=== PATIENT | male | born 1950 | race Caucasian/White ===

== ENCOUNTER → 2021-01-15 09:21 | Outpatient (CLI) | payer MEDICARE, MEDICAID, SELFPAY | PROVIDERS: Visit Provider Surgery | DX: Z01.812 Encounter for preprocedural laboratory examination (principal); Z11.52 Encounter for screening for COVID-19; Z12.11 Encounter for screening for malignant neoplasm of colon | CPT/HCPCS: U0003 ==

== ENCOUNTER 2021-01-17 07:09 | Day surgery (SDC) | payer MEDICARE, MEDICAID, SELFPAY ==
[2021-01-17] VITALS (7 sets, daily range): BP systolic 106–166; BP diastolic 69–93; PULSE 69–96; RESP 16–18; TEMP 36.3–36.5; O2SAT 96–100
[2021-01-17 07:46] LABS: POC Glucose,Bedside 147 (70-110)
--- NOTE | 2021-01-17 08:00 | P.PN_ITS ---
[facility] Anesthesia Checklist - Patient Identification Patient Identification: Arm Band - Structural Data Admitted From: Home Planned Operative Procedure/s: colonoscopy Consent for Planned Operative Procedure(s) Verified: Yes Verified Documents: Surgical Consent, History and Physical - NPO Status Verified Time NPO: 00:00 - Additional verifications Anesthesia Reactions: No Hx Blood Transfusions: No Blood Transfusion Reaction: No - Airway Assessment C-Spine Mobility Assessed: Yes (mp2) TMJ Mobility Assessed: Yes Dentition: Good Dentition - Neurological Assessment Level of Consciousness: Awake, Alert - Anesthesia Plan Anesthesia Risk discussed: Yes Anesthesia Plan: Verified ASA Class: III Anesthesia Type: MAC [facility] History I have reviewed the patient's past medical history: Yes Medical History: Reports:: Diabetes Mellitus Type 2, Hyperlipidemia, Hypertension Denies:: Cancer, Diabetes Mellitus Type 1, Internal Pacemaker, Lung Disease, MRSA, Seizures *Have you ever received a pneumonia vaccine?: Yes *Have you received a flu vaccine this season?: Yes Other Medical History: Denies: Blood Transfusion Reaction Anesthesia experience/problems:: nac Laterality Cases: Bilateral: Cataract Other Surgeries: Yes: Colonoscopy, Other (cataract). No: Pacemaker Amputation: No Fractures: No - *Social History Last grade of school completed: High school graduate Smoking Status: Never smoker Alcohol Intake: never Substance Use Type: denies use *Occupational Status:: retired Housing: house Household Members: family *Travel in the last 8 weeks: None Family Hx:: Diabetes
--- NOTE | 2021-01-17 08:35 | HMH.SCOPE ---
- Procedure: Date: 01/17/21 Patient Date of :: 1950 Procedure Performed:: Total colonoscopy to terminal ileum with snare polypectomy Indications:: Patient is a 70-year-old male, patient of Dr. Bishop, who presents for follow-up colonoscopy. I had performed previous colonoscopy on him on 09/08/2018 as initial screening colonoscopy. In the ascending colon distal to the ileocecal valve he had a moderate, greater than 10 mm, polyp removed with hot snare which was sessile serrated adenoma; in the transverse colon he had an irregular sessile polyp removed in a piecemeal fashion using hot snare and this area was marked with Raegan ink; in the sigmoid colon there was a approximately 10 mm tubular adenoma. He had rare left-sided diverticuli. I recommended a 2-year follow-up colonoscopy based on the pathologic characteristics and size of the polyps. Performing Provider:: Christian Sanchez MD Referring Provider:: Isaac Bishop MD Sedation:: MAC sedation Procedure:: Patient was taken to endoscopy procedure room and positioned in a lateral decubitus position. Adequate intravenous sedation was achieved. Digital examination was performed which was unremarkable. Variable stiffness Olympus colonoscope was inserted via the anus. Was advanced at the cecum. Colonic preparation was fair particularly in the right colon with liquid stool coating the colonic burden. However adequate visualization was achieved with thorough irrigation and suctioning. Colonoscope was advanced a short distance into the terminal ileum which appeared grossly normal. Colonoscope was withdrawn through the colon with careful surveillance. In the transverse colon at the region where he had tattooing with Raegan ink there was evidence of a sessile polyp. This required injection of Eleview (methylene blue) submucosally. Polypectomy was performed with cold cutting snare. Colonoscope was withdrawn through the remainder of the colon with careful surveillance. He had a few diverticuli. Retroflexion within the rectum revealed no evidence of any pathologic internal hemorrhoids. Colonoscope was withdrawn. Findings:: Fair preparation, particularly right colon Transverse polyp Diverticuli Recommendations:: Pending pathology repeat colonoscopy 2 to 3 years given the prior history and suboptimal preparation Complications:: None immediately apparent Estimated blood obtained (mL): 1
== END 2021-01-17 09:12 | disposition home or self-care (01) ==
LOC: OUTP 07:11
PROVIDERS: PCP Internal Medicine; Visit Provider Surgery
PROC: 0DJD8ZZ Inspection of Lower Intestinal Tract, Via Natural or Artificial Opening Endoscopic (ICD-10-PCS; principal; 2021-01-17 08:30)
DX: Z12.11 Encounter for screening for malignant neoplasm of colon (principal); Z86.010 Personal history of colon polyps; K63.5 Polyp of colon; K57.30 Diverticulosis of large intestine without perforation or abscess without bleeding; E11.9 Type 2 diabetes mellitus without complications; E78.5 Hyperlipidemia, unspecified; I10 Essential (primary) hypertension; Z83.3 Family history of diabetes mellitus; Z79.82 Long term (current) use of aspirin; Z79.899 Other long term (current) drug therapy; Z79.84 Long term (current) use of oral hypoglycemic drugs
CPT/HCPCS: 45385; 82962; 88305

== ENCOUNTER → 2021-08-03 12:37 | Outpatient (CLI) | payer MEDICARE, MEDICAID, SELFPAY ==
[2021-08-03 16:51] LABS: Chloride 104 mmol/L (98-107); Potassium 5.8 mmoL/L (3.5-5.1); Sodium 137 mmol/L (136-145)
[2021-08-03 16:53] LABS: Alanine Aminotransferase 24 U/L (12-78); Aspartate Amino Transferase 30 U/L (17-59); Blood Urea Nitrogen 17 mg/dl (9-20); Estimated Glomerular Filt Rate 83 ml/min (>60); GFR (African American) 101 ML/MIN (>60)
[2021-08-03 16:54] LABS: Albumin Level 4.6 g/dl (3.5-5.0); Albumin/Globulin Ratio 1.5 (1.1-1.8); Alkaline Phosphatase 112 U/L (38-126); Anion Gap 14.8 mEq/L (5-15); Calcium 8.9 mg/dl (8.4-10.2); Carbon Dioxide 24 mmol/L (22.0-30.0); Chol/HDL Ratio 3.7 (1-3.5); Cholesterol 112 mg/dl (140-200); Glucose 111 mg/dl (74-100); HDL Cholesterol 30 mg/dl (40-60); Total Protein,Serum 7.6 g/dl (6.3-8.2); Triglycerides 94 mg/dl (30-150); VLDL Cholesterol 19 mg/dL (0-40)
[2021-08-03 17:05] LABS: Direct LDL Cholesterol 78.73 mg/dL (100-129)
[2021-08-03 17:25] LABS: Hemoglobin A1C 7.2 % (4.0-6.0)
== END ==
PROVIDERS: Visit Provider Internal Medicine
DX: E11.9 Type 2 diabetes mellitus without complications (principal); Z79.84 Long term (current) use of oral hypoglycemic drugs
CPT/HCPCS: 80053; 80061; 83036

== ENCOUNTER → 2021-08-10 14:19 | Outpatient (CLI) | payer MEDICARE, MEDICAID, SELFPAY ==
[2021-08-10 16:26] LABS: Potassium 4.5 mmoL/L (3.5-5.1)
== END ==
PROVIDERS: Visit Provider Internal Medicine
DX: E87.5 Hyperkalemia (principal)
CPT/HCPCS: 84132

== ENCOUNTER → 2022-02-05 12:14 | Outpatient (CLI) | payer MEDICARE, MEDICAID, SELFPAY ==
[2022-02-05 14:12] LABS: Basophils # 0.1 K/mm3 (0-0.2); Basophils % 0.8 % (0.1-2.0); Eosinophils # 0.1 K/mm3 (0.0-0.4); Eosinophils % 1.9 % (0.1-12.0); Hematocrit 47.5 % (42.0-52.0); Hemoglobin 15.2 g/dL (14.1-18.0); Lymphocytes # 1.3 K/mm3 (0.7-4.5); Lymphocytes % 22.1 % (10-50); Mean Corpuscular HGB Conc 31.9 g/dL (31.8-35.4); Mean Corpuscular Hemoglobin 28.7 pg (27.0-31.2); Mean Corpuscular Volume 89.9 fl (80-94); Mean Platelet Volume 8.5 fl (7.4-10.4); Monocytes # 0.4 K/mm3 (0.1-1.0); Monocytes % 6.7 % (1.7-9.3); Neutrophils % 68.5 % (37.0-80.0); Platelet Count 295 K/mm3 (142-424); Red Blood Count 5.28 M/mm3 (4.60-6.20); Red Cell Distribution Width 13.6 % (11.5-17.5); White Blood Count 5.9 K/mm3 (4.8-10.8)
[2022-02-05 14:28] LABS: Chol/HDL Ratio 3.7 (1-3.5); Cholesterol 123 mg/dl (140-200); HDL Cholesterol 33 mg/dl (40-60); Triglycerides 69 mg/dl (30-150); VLDL Cholesterol 14 mg/dL (0-40)
[2022-02-05 14:31] LABS: Creatinine,Urine Random 109 mg/dL (Not Estab.)
[2022-02-05 14:32] LABS: Microalbumin/Creatinine Ratio 67.4
[2022-02-05 15:05] LABS: Hemoglobin A1C 7.9 % (4.0-6.0)
[2022-02-07 08:48] LABS: Direct LDL Cholesterol 70 mg/dL (100-129)
== END ==
PROVIDERS: PCP Internal Medicine; Visit Provider Internal Medicine
DX: E11.22 Type 2 diabetes mellitus with diabetic chronic kidney disease (principal); E78.5 Hyperlipidemia, unspecified; E55.9 Vitamin D deficiency, unspecified; R80.9 Proteinuria, unspecified; M17.0 Bilateral primary osteoarthritis of knee; Z79.84 Long term (current) use of oral hypoglycemic drugs
CPT/HCPCS: 80061; 82043; 82570; 83036; 85025

== ENCOUNTER → 2022-08-13 11:25 | Outpatient (CLI) | payer MEDICARE, MEDICAID, SELFPAY ==
[2022-08-13 12:50] LABS: Basophils % 0.6 % (0.1-2.0); Eosinophils # 0.2 K/mm3 (0.0-0.4); Hematocrit 48.9 % (42.0-52.0); Hemoglobin 15.9 g/dL (14.1-18.0); Lymphocytes # 1.4 K/mm3 (0.7-4.5); Lymphocytes % 23.3 % (10-50); Mean Corpuscular HGB Conc 32.4 g/dL (31.8-35.4); Mean Corpuscular Hemoglobin 28.3 pg (27.0-31.2); Mean Corpuscular Volume 87.4 fl (80-94); Mean Platelet Volume 8.4 fl (7.4-10.4); Monocytes # 0.5 K/mm3 (0.1-1.0); Monocytes % 8.6 % (1.7-9.3); Neutrophils # 3.8 K/mm3 (1.8-7.8); Neutrophils % 64.5 % (37.0-80.0); Platelet Count 299 K/mm3 (142-424); Red Blood Count 5.59 M/mm3 (4.60-6.20); Red Cell Distribution Width 13.5 % (11.5-17.5); White Blood Count 5.9 K/mm3 (4.8-10.8)
[2022-08-13 13:42] LABS: Alanine Aminotransferase 19 U/L (12-78); Albumin Level 4.4 g/dl (3.5-5.0); Albumin/Globulin Ratio 1.5 (1.1-1.8); Alkaline Phosphatase 105 U/L (38-126); Anion Gap 8.5 mEq/L (5-15); Aspartate Amino Transferase 20 U/L (17-59); Bilirubin,Total 1.1 mg/dl (0.2-1.3); Blood Urea Nitrogen 16 mg/dl (9-20); Carbon Dioxide 26 mmol/L (22.0-30.0); Chloride 107 mmol/L (98-107); Chol/HDL Ratio 3.3 (1-3.5); Cholesterol 106 mg/dl (140-200); Estimated Glomerular Filt Rate 83 ml/min (>60); GFR (African American) 101 ML/MIN (>60); Globulin 2.9 g/dL (1.3-3.2); Glucose 121 mg/dl (74-100); HDL Cholesterol 32 mg/dl (40-60); Potassium 4.5 mmoL/L (3.5-5.1); Sodium 137 mmol/L (136-145); Total Protein,Serum 7.3 g/dl (6.3-8.2); Triglycerides 71 mg/dl (30-150); VLDL Cholesterol 14 mg/dL (0-40)
[2022-08-13 13:53] LABS: Direct LDL Cholesterol 60.59 mg/dL (100-129)
[2022-08-13 14:12] LABS: Prostate Specific Ag Screen 1.6 ng/ml (0.0-4.0)
== END ==
PROVIDERS: PCP Internal Medicine; Visit Provider Internal Medicine
DX: E11.52 Type 2 diabetes mellitus with diabetic peripheral angiopathy with gangrene (principal); E78.5 Hyperlipidemia, unspecified; E55.9 Vitamin D deficiency, unspecified; R80.9 Proteinuria, unspecified; N40.1 Benign prostatic hyperplasia with lower urinary tract symptoms; Z12.5 Encounter for screening for malignant neoplasm of prostate; Z79.84 Long term (current) use of oral hypoglycemic drugs
CPT/HCPCS: 80053; 80061; 83036; 85025; G0103

== ENCOUNTER → 2023-02-12 12:11 | Outpatient (CLI) | payer MEDICARE, MEDICAID, SELFPAY ==
[2023-02-12 13:49] LABS: Alanine Aminotransferase 22 U/L (12-78); Albumin Level 4.4 g/dl (3.5-5.0); Albumin/Globulin Ratio 1.6 (1.1-1.8); Alkaline Phosphatase 109 U/L (38-126); Anion Gap 18.8 mEq/L (5-15); Aspartate Amino Transferase 22 U/L (17-59); Bilirubin,Total 0.9 mg/dl (0.2-1.3); Blood Urea Nitrogen 16 mg/dl (9-20); Carbon Dioxide 23 mmol/L (22.0-30.0); Chloride 105 mmol/L (98-107); Cholesterol 109 mg/dl (140-200); Estimated Glomerular Filt Rate 95 ml/min (>60); GFR (African American) 115 ML/MIN (>60); Globulin 2.8 g/dL (1.3-3.2); Glucose 123 mg/dl (74-100); HDL Cholesterol 36 mg/dl (40-60); Potassium 4.8 mmoL/L (3.5-5.1); Sodium 142 mmol/L (136-145); Total Protein,Serum 7.2 g/dl (6.3-8.2); Triglycerides 69 mg/dl (30-150); VLDL Cholesterol 14 mg/dL (0-40)
[2023-02-12 13:59] LABS: Direct LDL Cholesterol 54.28 mg/dL (100-129)
[2023-02-12 17:36] LABS: Hemoglobin A1C 7.3 % (4.0-6.0)
[2023-02-12 18:06] LABS: Creatinine,Urine Random 92 mg/dL (Not Estab.)
[2023-02-12 18:22] LABS: Microalbumin/Creatinine Ratio 84.7
== END ==
PROVIDERS: PCP Internal Medicine; Visit Provider Internal Medicine
DX: E11.22 Type 2 diabetes mellitus with diabetic chronic kidney disease (principal); E78.5 Hyperlipidemia, unspecified; E55.9 Vitamin D deficiency, unspecified; R80.9 Proteinuria, unspecified; M17.0 Bilateral primary osteoarthritis of knee; N40.1 Benign prostatic hyperplasia with lower urinary tract symptoms; Z79.84 Long term (current) use of oral hypoglycemic drugs
CPT/HCPCS: 80053; 80061; 82043; 82570; 83036

== ENCOUNTER 2023-06-14 12:13 | Inpatient (IN) | payer MEDICARE, MEDICAID, SELFPAY ==
[2023-06-14] VITALS (23 sets, daily range): BP systolic 116–171; BP diastolic 71–109; PULSE 70–126; RESP 15–20; TEMP 36.4–36.8; O2SAT 94–100; BMI 28.0; BMI 29.0
--- NOTE | 2023-06-14 | IR_ITS ---
APPROVED REPORT Patient Location: Emergent Chief Engineer: JASMEET Hines RT (R) PROCEDURES Left heart catheterization Left ventriculogram Selective coronary angiogram Drug-eluting stent deployment to the mid and distal dominant right coronary artery Drug-eluting stent deployment to the proximal and mid LAD in a contiguous manner INDICATION Acute inferior ST elevation myocardial infarction, Coronary artery disease Informed consent was obtained prior to the procedure. COMPLICATIONS None Estimated Blood Loss: Less than 10 mls TECHNIQUE One percent lidocaine used to anesthetize the right anterior aspect of the wrist. The right radial artery was accessed via the Seldinger technique. A 6 Tamazight sheath was placed in the right radial artery. 2.5 mg of Verapamil, 800 mcg of nitroglycerin, 1mg Lidocaine and 5000 U Heparin were given through the arterial sheath. The papa catheter was also used to perform left heart catheterization, left ventriculogram and selective coronary angiogram. At the end the diagnostic angiogram therapeutic heparin was administered giving a therapeutic ACT and the guide catheter was placed in the right coronary artery followed by Choice PT extra-support wire down the right coronary artery. A 3 mm x 38 mm Basilio frontier stent was delivered at 20 shirley reducing the critical stenosis to 0%. SCOTT-3 flow was present before and after the procedure. Following this the catheter was placed in the LAD and a choice floppy was placed down distally. A 2.5 x 38 mm Basilio frontier stent was deployed at 16 shirley in the mid LAD. Following this a 3 mm x 38 mm [place] frontier stent was placed proximal to this extending back into the proximal segment and deployed at 20 shirley. The balloon was then advanced into 70% of the 2.5 mm stent and then deployed at 20 shirley. SCOTT-3 flow was present before and after the procedure. After the procedure and achieving excellent angiograph results the apparatus was removed the sheath was removed and hemostasis was achieved using TR banding patient was transferred to the postop holding in stable condition ANGIOGRAPHIC RESULTS The left main artery Normal The left anterior descending artery Has a proximal eccentric 60% stenosis with diffuse mid vessel 7080 and 90% stenoses. Distally there is a concentric 50% stenosis The circumflex artery Is nondominant yet still a large-caliber vessel and has mild proximal 10% luminal irregularities The right coronary artery Is a dominant vessel has proximal 40% stenosis within the mid vessel 40% stenosis along a tortuous bend followed by a focal 90% stenosis followed by additional 40% stenoses. Distally there are 40% stenoses along tortuous bends. A large RV marginal branch has a proximal 90% stenosis however the vessel is less than 2 mm in diameter and SCOTT-3 flow was present The GRAVES ventriculogram reveals Dilated ventricle with inferior wall hypokinesis and mild anterior wall hypokinesis. Estimated ejection fraction is 30 to 35% The left ventricular end-diastolic pressure 20 mmHg IMPRESSION Severe to critical two-vessel coronary disease as described above Successful stenting of the mid to distal dominant right coronary critical disease reduced to 0% with 1 drug-eluting stent Successful stenting the proximal to mid LAD severe disease reduced to 0% with 2 contiguous drug-eluting stents Severely reduced ejection fraction with regional wall motion abnormalities Elevated LVEDP PLAN 1. Effient 10 mg daily plus aspirin 81 mg daily 2. LDL less than 55 to be achieved with high intensity statin 3. Start Entresto and uptitrate as tolerated. Also start carvedilol 3.125 p.o. twice daily and uptitrate as tolerated 4. Patient will need to be monitored for at least the next 48 hours. Recommend echocardiogram Friday and possibly fit for LifeVest if ejection fraction remains less than 35% 5. Cardiac rehabilitation 6. Continuous telemetry Electronically signed by : Brandon Bernardo MD 06/14/2023 17:11:20
--- NOTE | 2023-06-14 13:28 | PC.NURSE ---
checked on pt no needs at this time relaxing in bed at bs
--- NOTE | 2023-06-14 13:36 | CT_ITS ---
PROCEDURE INFORMATION: Exam: CTA Chest With Contrast Exam date and time: 06/14/2023 3:19 PM Age: 72 years old Clinical indication: Pain; Chest pressure; Additional info: Chest pain, tachy TECHNIQUE: Imaging protocol: Computed tomographic angiography of the chest with contrast. Exam focused on the arteries. 3D rendering (Not supervised by radiologist): MIP and/or 3D reconstructed images were created by the technologist. Radiation optimization: All CT scans at this facility use at least one of these dose optimization techniques: automated exposure control; mA and/or kV adjustment per patient size (includes targeted exams where dose is matched to clinical indication); or iterative reconstruction. Contrast material: ISO 370; Contrast volume: 75 ml; Contrast route: INTRAVENOUS (IV); REPORTING DATA: Count of CT and Cardiac NM exams in prior 12 months: This patient has received 0 known CTs and 0 known cardiac nuclear medicine studies in the 12 months prior to the current study. COMPARISON: CR XR CHEST 2V 09/06/2019 4:50 AM FINDINGS: Pulmonary arteries: Normal. No pulmonary emboli. Aorta: Unremarkable. No aortic aneurysm. No aortic dissection. Lungs: Unremarkable. No consolidation. No masses. Pleural spaces: Unremarkable. No pneumothorax. No pleural effusion. Heart: Unremarkable. No cardiomegaly. No pericardial effusion. Lymph nodes: Unremarkable. No enlarged lymph nodes. Bones/joints: Unremarkable. No acute fracture. Soft tissues: Unremarkable. IMPRESSION: No acute findings.
--- NOTE | 2023-06-14 13:37 | ED_ITS ---
Discharge Plan Disposition Patient Disposition: Admitted Prescriptions Prescriptions: No Action aspirin [Aspir-Anuja] 325 mg tablet,delayed release (DR/EC) 325 mg PO DAILY losartan 25 mg tablet 25 mg PO DAILY glipizide 5 MG tablet extended release 24hr 5 mg PO BID metformin 1,000 MG tablet 1,000 mg PO BID atorvastatin 10 MG tablet 10 mg PO HS Referrals Follow up/Referrals: Isaac Bishop MD [Primary Care Provider] - See instructions Clinical Impressions Clinical Impression: Chest pain, Tachycardia, Non-ST elevation TX (NSTEMI) Discharge ED Provider: Jitendra Pérez HPI General Chief Complaint: Chest Pain Stated Complaint: Chest Pain Time Seen by Provider: 06/14/23 13:25 Mode of Arrival: Ambulatory Source of Information: Patient Limitations: No Limitations Description of Symptoms (Recalled from ER Triage Doc. by RN): Patient complaint of chest pain that started yesterday and has just not gotten any better. States he thought it may be heart burn but states he has never had heart burn before. History of Present Illness HPI narrative: Patient is a 72-year-old male presenting today with chest pain. States that other than diabetes he has no significant medical problems does not regularly go to the doctor or the emergency department has had 2 days of constant chest discomfort in the substernal region nonradiating nonexertional not associated with diaphoresis or dyspnea. Denies any pleuritic or positional aspect of this. No fevers chills cough or any other symptoms. No lower extremity swelling no history of TX heart failure etc. Related Data Home Medications Medication Instructions Recorded Confirmed glipizide 5 mg tablet, extended 5 mg PO BID Diabetes 04/29/18 06/14/23 release 24 hr metformin 1,000 mg tablet 1,000 mg PO BID Diabetes 04/29/18 06/14/23 aspirin 325 mg tablet,delayed 325 mg PO DAILY heart. 08/21/18 06/14/23 release (Aspir-Anuja) losartan 25 mg tablet 25 mg PO DAILY bp 12/29/20 06/14/23 atorvastatin 10 mg tablet 10 mg PO HS Cholesterol 01/09/21 06/14/23 Allergies Allergy/AdvReac Type Severity Reaction Status Date / Time No Known Allergies Allergy Verified 02/05/21 09:31 [facility] Disclaimer: The information contained in this section may have been updated after the patient was seen, as this information can be updated by other users. Social History Smoking Status: Unknown if ever smoked second hand exposure: No alcohol intake: never substance use type: denies use current occupational status: retired Travel in the last 8 weeks: None household members: family housing: house caffeine: Yes ROS Obtained: Yes All systems reviewed & no additional complaints except as documented Physical Exam General General appearance: alert Respiratory Respiratory exam: Present normal lung sounds bilaterally; Absent respiratory distress Cardiovascular Cardiovascular exam: Present tachycardia Abdominal Exam Abdominal exam: Present soft and distention; Absent tenderness Neurological Exam Neurological exam: Present alert and oriented X3 HEART Score HEART Score HEART Score assessment performed?: Yes History (anamnesis): Moderately suspicious ECG: Non-specific disturbance Age: >65 years Risk factors: 1-2 risk factors Troponin: > 3x normal limit HEART Score: 7 Procedures Miscellaneous Procedure Procedure Performed: Limited cardiac ultrasound Indication: Chest pain Identified structures: The heart was visualized in the parasternal long axis, parastenal short axis, apical four chamber and subxyphiod views. The IVC was visualized in the short axis and long axis at its entry into the right atrium. Findings: Hyperdynamic LV normal LVEF no obvious significant regional wall motion abnormality or obvious right heart strain including Hayward sign septal deviation or RV LV ratio elevation. No pericardial effusion noted. Impression: Hyperdynamic LV but otherwise unremarkable emergency bedside cardiac ultrasound. Images were saved to permanent archive The study was technically adequate CPT: 52037-89 This study was performed by me, and I personally interpreted all images/videos. Based on my clinical judgement, these images were adequate and did not necessitate further imaging. Critical Care Critical Care Time Critical Care Time: Yes Attestation: On 06/14/23, the high probability of a clinically significant, sudden or life threatening deterioration of the following system(s) required my full and direct attention, intervention and personal management. The time I documented below is in addition to time spent performing reported procedures but includes the following listed in this critical care notation. Total Time Total Critical Care Time: 35 Medical Decision Making Declan Inquiry Pt receiving controlled substance: No Vital Signs Vital Signs: 06/14/23 12:13 06/14/23 12:30 06/14/23 13:00 Temperature 98.0 F Temperature Source Oral Pulse Rate 115 H 116 H Pulse Rate [Radial] 126 H Respiratory Rate 20 15 19 Blood Pressure 147/94 H 139/92 H Blood Pressure [Right Arm] 158/109 H Blood Pressure Mean [Right Arm] 125 Blood Pressure Source [Right Arm] Automatic Cuff Blood Pressure Position [Right Arm] Sitting 02 Sat by Pulse Oximetry 98 97 97 Oxygen Delivery Method Room Air 06/14/23 13:30 06/14/23 14:00 Temperature Temperature Source Pulse Rate 112 H 113 H Pulse Rate [Radial] Respiratory Rate Blood Pressure 158/95 H 151/94 H Blood Pressure [Right Arm] Blood Pressure Mean [Right Arm] Blood Pressure Source [Right Arm] Blood Pressure Position [Right Arm] 02 Sat by Pulse Oximetry 97 97 Oxygen Delivery Method Lab Data Lab results reviewed: Yes I reviewed the patient's lab results. Labs: Lab Results 06/14/23 12:14: WBC 7.3, RBC 6.09, Hgb 17.3, Hct 52.5 H, MCV 86.3, MCH 28.4, MCHC 32.9, RDW 13.6, Plt Count 265, MPV 8.1, Neut % (Auto) 64.2, Lymph % (Auto) 26.0, [place] % (Auto) 7.0, Eos % (Auto) 2.1, Baso % (Auto) 0.8, Neut # (Auto) 4.7, Lymph # (Auto) 1.9, [place] # (Auto) 0.5, Eos # (Auto) 0.2, Baso # (Auto) 0.1, Sodium 141, Potassium 3.8, Chloride 104, Carbon Dioxide 24, Anion Gap 16.8 H, BUN 18, Creatinine 0.90, Estimated Creat Clear 95, Estimated GFR 83, Est GFR ( Amer) 101, Glucose 274 H, Calcium 8.7, Magnesium 1.8, Total Bilirubin 1.1, AST 53, ALT 43, Alkaline Phosphatase 131 H, Troponin I 0.61 H, Total Protein 8.0, Albumin 4.6, Globulin 3.4 H, Albumin/Globulin Ratio 1.4, TSH 1.66 06/14/23 14:25: Troponin I 0.56 H 06/14/23 12:14 06/14/23 12:14 Response Orders (Tests/Meds): ED MEDICATIONS Discontinued Medications Generic Name Dose Route Start Last Admin Trade Name Freq PRN Reason Stop Dose Admin Aspirin 324 mg 06/14/23 13:35 06/14/23 13:51 Aspirin 81mg Chewable Tablet PO 06/14/23 13:36 Not Given ONCE ONE Lactated Ringer's 1,000 mls @ 999 mls/hr 06/14/23 13:45 06/14/23 13:47 Lactated Ringer's 1000 Ml Bag IV 06/14/23 14:45 999 mls/hr .Q1H1M JR Administration Iopamidol 75 ml 06/14/23 15:23 06/14/23 15:26 Iopamidol-370 (76%);100ml Bottle IV 06/14/23 15:24 75 ml ONCE ONE Administration Sodium Chloride 50 ml 06/14/23 15:23 06/14/23 15:26 0.9 % Sodium Chloride 50 Ml Vial IV 06/14/23 15:24 50 ml ONCE ONE Administration Sodium Chloride 10 ml 06/14/23 15:23 06/14/23 15:26 Sodium Chloride 0.9% 10ml Syr (Rad Only) IV 06/14/23 15:24 10 ml ONCE ONE Administration ORDERS Category Date Time Status CT angio chest PE protocol Stat Cat Scan 06/14/23 13:36 Taken CBC w/Auto Diff [Complete Blood Count Auto Diff] Stat Lab 06/14/23 12:14 Completed CMP [Comprehensive Metabolic Panel] Stat Lab 06/14/23 12:14 Completed Magnesium Stat Lab 06/14/23 12:14 Completed TSH [Thyroid Stimulating Hormone] Stat Lab 06/14/23 12:14 Completed Trop I [Troponin I] Stat Lab 06/14/23 12:14 Completed Troponin I Q3H Lab 06/14/23 14:25 Completed Troponin I Q3H Lab 06/14/23 19:45 Ordered MDM Narrative Medical Decision Narrative: Patient is a 72-year-old male presenting today with chest pain for the last several days that has been constant no other high risk factors associated with that however he is significantly tachycardic at 120 on my evaluation. EKG performed which I first interpreted which shows a ventricular rate of 127 sinus tachycardia did have low voltage in the precordial leads but this reason was con cerned about a possible pericardial effusion or heart failure and an ultrasound was done as below, remainder of the EKG interpretation showed a positive deflection in leads I and aVF normal axis there is some Q waves in the inferior leads which may be from an old [place] but no acute ST elevations or depressions or other significant conduction abnormalities noted. Ultrasound was done which did not show any acute pericardial effusion or any obvious regional wall motion abnormalities. I am highly concerned about a possible pulmonary embolism in this patient we will get a CT PE get troponins BNP etc. IV fluids will be administered as well. Reassessment 3:46 PM patient still stating he is having very mild amount of chest discomfort. Has not worsened states the majority of his pain was yesterda y. The initial troponin was actually initially lost by the lab and resulted at this exact same time as a second troponin both of which are elevated but trending down first troponin was 0.61-second troponin was 0.56. I reviewed the case with Dr. Bernardo. Given the fact he has a low bit of ongoing discomfort has an Q waves and some less than 1 mm elevations inferiorly but not technically STEMI criteria he will take him to the Sales Development Executive right now. He has been given aspirin additional antiplatelet agents anticoagulation per the wrapper caser. I discussed the case with the patient he is agreeable to this plan.
[2023-06-14 13:47] LABS: Basophils # 0.1 K/mm3 (0-0.2); Basophils % 0.8 % (0.1-2.0); Eosinophils # 0.2 K/mm3 (0.0-0.4); Eosinophils % 2.1 % (0.1-12.0); Hematocrit 52.5 % (42.0-52.0); Hemoglobin 17.3 g/dL (14.1-18.0); Lymphocytes # 1.9 K/mm3 (0.7-4.5); Mean Corpuscular HGB Conc 32.9 g/dL (31.8-35.4); Mean Corpuscular Hemoglobin 28.4 pg (27.0-31.2); Mean Corpuscular Volume 86.3 fl (80-94); Mean Platelet Volume 8.1 fl (7.4-10.4); Monocytes # 0.5 K/mm3 (0.1-1.0); Neutrophils # 4.7 K/mm3 (1.8-7.8); Neutrophils % 64.2 % (37.0-80.0); Platelet Count 265 K/mm3 (142-424); Red Blood Count 6.09 M/mm3 (4.60-6.20); Red Cell Distribution Width 13.6 % (11.5-17.5); White Blood Count 7.3 K/mm3 (4.8-10.8)
[2023-06-14] MEDS: LACTATED RINGERS 1000ML 1,000 ML 999 ML IV (13:47)
--- NOTE | 2023-06-14 14:20 | HMH.ITSTN ---
ct pending, waiting on lab results
[2023-06-14 14:53] LABS: Chloride 104 mmol/L (98-107); Potassium 3.8 mmoL/L (3.5-5.1); Sodium 141 mmol/L (136-145)
[2023-06-14 14:55] LABS: Alanine Aminotransferase 43 U/L (12-78); Alkaline Phosphatase 131 U/L (38-126); Aspartate Amino Transferase 53 U/L (17-59); Bilirubin,Total 1.1 mg/dl (0.2-1.3); Blood Urea Nitrogen 18 mg/dl (9-20); Creatinine Clearance Estimated 95 mL/min (50-200); Estimated Glomerular Filt Rate 83 ml/min (>60); GFR (African American) 101 ML/MIN (>60)
[2023-06-14 14:56] LABS: Albumin Level 4.6 g/dl (3.5-5.0); Albumin/Globulin Ratio 1.4 (1.1-1.8); Anion Gap 16.8 mEq/L (5-15); Calcium 8.7 mg/dl (8.4-10.2); Carbon Dioxide 24 mmol/L (22.0-30.0); Globulin 3.4 g/dL (1.3-3.2); Glucose 274 mg/dl (74-100)
[2023-06-14 15:08] LABS: Magnesium 1.8 mg/dl (1.6-2.3)
[2023-06-14 15:10] LABS: Troponin I 0.56 ng/ml (0.00-0.034)
[2023-06-14 15:10] LABS: Troponin I 0.61 ng/ml (0.00-0.034)
--- NOTE | 2023-06-14 15:11 | PC.NURSE ---
critical trop 1st one is .61, second one is .56, aware, delay per lab on first trop
[2023-06-14] MEDS: 0.9 % SODIUM CHLORIDE 50 ML VIAL IV (15:26)
[2023-06-14] MEDS: IOPAMIDOL-370 (76%);100ML BOTTLE 75 ML IV (15:26)
[2023-06-14] MEDS: SODIUM CHLORIDE 0.9% 10ML SYR (RAD ONLY) 10 ML IV (15:26)
[2023-06-14 15:27] LABS: Thyroid Stimulating Hormone 1.66 uIU/mL (0.465-4.68)
--- NOTE | 2023-06-14 15:42 | PC.NURSE ---
mechanical laboratory technician team paged at [facility] request. Received call back from Diandra at [phone], Gianna and Dontae at [phone]
--- NOTE | 2023-06-14 15:45 | PC.NURSE ---
Patient changing into a gown.
--- NOTE | 2023-06-14 15:53 | PC.NURSE ---
pt in gown , shaved groin and re cycled Bp
--- NOTE | 2023-06-14 16:23 | PC.NURSE ---
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
[2023-06-14] MEDS: 0.9 % SODIUM CHLORIDE 500 ML 25 ML IV (16:37)
[2023-06-14] MEDS: NITROGLYCERIN 800MCG/8ML SYR (CATH LAB) 800 MCG IA (16:37)
[2023-06-14] MEDS: VERAPAMIL 2.5MG/ML 2ML VIAL 2.5 MG IV (16:37)
[2023-06-14] MEDS: HEPARIN 1,000 UNITS/500ML NS (CATH LAB) 3000 UNIT IV (16:37)
[2023-06-14] MEDS: HEPARIN 1,000 UNITS/ML 10ML VIAL (CATH LAB) 10000 UNIT IV ×3 (16:37→17:13)
[2023-06-14] MEDS: LIDOCAINE 1% 10ML MDV 20 ML IJ (16:37)
[2023-06-14] MEDS: diphenhydrAMINE 50MG/ML VIAL 50 MG IV (16:38)
[2023-06-14] MEDS: METOPROLOL TARTRATE 5MG/5ML VIAL 5 MG IV (16:52)
[2023-06-14] MEDS: FENTANYL 100MCG/2ML VIAL 50 MCG IV (17:04)
[2023-06-14] MEDS: MIDAZOLAM HCL 1MG/1ML 5ML VIAL 1 MG IV (17:04)
[2023-06-14] MEDS: PRASUGREL 10MG TAB 60 MG PO (17:13)
[2023-06-14] MEDS: IOPAMIDOL-370 (76%);100ML BOTTLE 180 ML IV (17:23)
[2023-06-14 17:24] LABS: CATHL Activated Clotting Time 289 SEC (74-125)
--- NOTE | 2023-06-14 17:45 | PC.NURSE ---
Pt arrived to the floor post cath. Pt alert and oriented x4. Radialband to right extremity, no drainage noted, 12 ML of air intact. Pt lung sounds clear. Abdomen soft and nontender, bowel sounds active. Pt has no complaints at this time. Continuous vital sign monitoring. Call light in reach and working. Family at the bedside.
[2023-06-14] MEDS: HEPARIN SODIUM 5,000 UNIT/ML VIAL 5000 UNIT SQ (18:26)
--- NOTE | 2023-06-14 20:01 | EXP.HP ---
History of Present Illness *Admission Date: 06/14/23 *Reason for visit:: CP *History of present illness: This is a 72-year-old male PMHx of diabetes, HLD, presenting today with chest pain. Stated has had 2 days of constant chest discomfort in the substernal region nonradiating nonexertional not associated with diaphoresis or dyspnea. Denies any pleuritic or positional aspect of this. No fevers chills cough or any other symptoms. No lower extremity swelling no history of PA heart failure etc. Patient admitted for cath labs. patient seen after procedure. [facility] Disclaimer: The information contained in this section may have been updated after the patient was seen, as this information can be updated by other users. Medical History (Updated 06/14/23 @ 20:27 by Humphrey Whiteside APRN) Cataract Diabetes mellitus, type 2 Hyperlipidemia Hypertension Family History (Updated 06/14/23 @ 17:48 by Elizabeth Mireles, RN) Other No significant family history Social History (Updated 06/14/23 @ 17:49 by Elizabeth Mireles, RN) Smoking Status: Unknown if ever smoked second hand exposure: No alcohol intake: never substance use type: denies use current occupational status: retired Travel in the last 8 weeks: None household members: family housing: house caffeine: Yes Review of Systems Review of Systems Review of systems:: pertinent systems reviewed and negative unless documented below Meds Home Medications and Allergies Home Medications Medication Instructions Recorded Confirmed Type glipizide 5 mg tablet, extended 5 mg PO BID Diabetes 04/29/18 06/14/23 History release 24 hr metformin 1,000 mg tablet 1,000 mg PO BID Diabetes 04/29/18 06/15/23 History aspirin 325 mg tablet,delayed 325 mg PO DAILY Circulation 08/21/18 06/15/23 History release (Aspir-Anuja) atorvastatin 10 mg tablet 10 mg PO HS Cholesterol 01/09/21 06/15/23 History dapagliflozin propanediol 10 mg 10 mg PO DAILY Diabetes 06/14/23 06/14/23 History tablet (Farxiga) losartan 50 mg tablet 50 mg PO DAILY Hypertension 06/15/23 06/15/23 History New Prescriptions to Start Prescriptions: Allergies Allergy/AdvReac Type Severity Reaction Status Date / Time No Known Allergies Allergy Verified 02/05/21 09:31 Exam Data for Last 24 hours Vital signs and Labs for Last 24 Hours: Temp Pulse Resp BP Pulse Ox O2 Del Method 97.7 F 79 18 126/75 98 Room Air 06/14/23 18:45 06/14/23 18:45 06/14/23 18:45 06/14/23 18:45 06/14/23 18:45 06/14/23 18:45 Laboratory Results - last 24 hr 06/14/23 12:14: WBC 7.3, RBC 6.09, Hgb 17.3, Hct 52.5 H, MCV 86.3, MCH 28.4, MCHC 32.9, RDW 13.6, Plt Count 265, MPV 8.1, Neut % (Auto) 64.2, Lymph % (Auto) 26.0, Taliaferro % (Auto) 7.0, Eos % (Auto) 2.1, Baso % (Auto) 0.8, Neut # (Auto) 4.7, Lymph # (Auto) 1.9, [place]ferro # (Auto) 0.5, Eos # (Auto) 0.2, Baso # (Auto) 0.1, Sodium 141, Potassium 3.8, Chloride 104, Carbon Dioxide 24, Anion Gap 16.8 H, BUN 18, Creatinine 0.90, Estimated Creat Clear 95, Estimated GFR 83, Est GFR ( Amer) 101, Glucose 274 H, Calcium 8.7, Magnesium 1.8, Total Bilirubin 1.1, AST 53, ALT 43, Alkaline Phosphatase 131 H, Troponin I 0.61 H, Total Protein 8.0, Albumin 4.6, Globulin 3.4 H, Albumin/Globulin Ratio 1.4, TSH 1.66 06/14/23 14:25: Troponin I 0.56 H 06/14/23 17:44: Activated Clotting Time 289 H* I & O for Last 24 hours: Intake & Output 06/11/23 06/12/23 06/13/23 06/14/23 23:59 23:59 23:59 23:59 Output Total 400 / 400 Balance -400 / -400 Weight 99.96 kg Constitutional Constitutional: mild distress and cooperative *Routine HEENT Exam Head: Present normocephalic and atraumatic Eye: Present EOMI, PERRL and normal accommodation ENT: Present mucous membranes moist *Routine Neck Exam Neck: Present supple, full ROM and trachea midline *Routine Respiratory Exam Respiratory: Present normal respiratory effort, able to speak in complete sentences and symmetric chest movement *Routine Cardiovascular Exam Cardiovascular: Present RRR, Normal S1 and Normal S2 *Routine Abdominal Exam Abdominal: Present soft and normoactive bowel sounds; Absent organomegaly *Routine Rectal Exam Rectal:: deferred *Routine Genitalia Exam Genitalia:: deferred *Routine Extremities Exam Extremities: Present full ROM, pulses intact, normal capillary refill and vascular access; Absent cyanosis, clubbing or edema *Routine Skin Exam Skin: Present intact, erythema and warm *Routine Neurological Exam Neurological: Present alert, oriented X3, normal reflexes, moving all extremities and normal speech Routine Psychiatric Exam Psychiatric: Present normal thought process, cooperative and good judgment H&P: Result Imaging and Cardiology EKG: Status: image reviewed by me, Preliminary report and final report CT scan - chest: Status: image reviewed by me, Preliminary report and final report Assessment and Plan *Assessment and plan (1) Chest pain: Status: Acute Qualifiers: Chest pain type: chest pain due to myocardial ischemia Ischemic chest pain type: unspecified angina pectoris type Qualified Code(s): I25.9 - Chronic ischemic heart disease, unspecified Category: Medical Code(s): R07.9 - Chest pain, unspecified (2) Tachycardia: Status: Acute Category: Medical Code(s): R00.0 - Tachycardia, unspecified (3) Status post placement of stent in right coronary artery: Status: Acute Category: Surgical Code(s): Z95.5 - Presence of coronary angioplasty implant and graft (4) Status post insertion of drug-eluting stent into left anterior descending (LAD) artery for coronary artery disease: Status: Acute Category: Surgical Code(s): Z95.5 - Presence of coronary angioplasty implant and graft (5) Non-ST elevation [place] (NSTEMI): Status: Acute Category: Medical Code(s): I21.4 - Non-ST elevation (NSTEMI) myocardial infarction (6) Heart failure with reduced ejection fraction due to coronary artery disease: Status: Acute Category: Medical Code(s): I50.20 - Unspecified systolic (congestive) heart failure; I25.10 - Atherosclerotic heart disease of [place] coronary artery without angina pectoris (7) Hypertension: Status: Acute Qualifiers: Hypertension type: unspecified Qualified Code(s): I10 - Essential (primary) hypertension Category: Medical Code(s): I10 - Essential (primary) hypertension (8) Hyperlipidemia: Status: Acute Qualifiers: Hyperlipidemia type: unspecified Qualified Code(s): E78.5 - Hyperlipidemia, unspecified Category: Medical Code(s): E78.5 - Hyperlipidemia, unspecified (9) Diabetes mellitus, type 2: Status: Acute Qualifiers: Diabetes mellitus complication status: with other specified complication Diabetes mellitus retirement insulin use: without retirement use Qualified Code(s): E11.69 - Type 2 diabetes mellitus with other specified complication Category: Medical Code(s): E11.9 - Type 2 diabetes mellitus without complications Plan 72-year-old male PMHx of diabetes, HLD, presenting today with chest pain. Stated has had 2 days of constant chest discomfort in the substernal region nonradiating nonexertional not associated with diaphoresis or dyspnea. On arrival patient was tachycardic, intermittent chest discomfort, lebvated troponin, with non specific changes on the EKG, patient was taken emergently to laboratory tester. Was found to have Severe to critical two-vessel coronary disease that was successfully stenting of the mid to distal dominant right coronary and the proximal to mid LAD severe disease reduced to zero. Severely reduced ejection fraction with regional wall motion abnormalities. Patient arrived to floor post procedure. hemodinamically stable. Plan as follow: -CP and tachycardia with elevated troponin secondary to CAD: s/p stent placement LAD and right coronary: Admit patient for continue cardiac telemetry Cardiology on board. monitor for bleeding or hemodinamically decompensation VS per unit protocols repeat labs in the morning -Reduced EF likely secondary to CAD: per cardiology will follow up for possible life vest monitor HR and BP monitor O2 sat -HTN, HLD, Diabetes. conditions reviewed stable. resumed aspirin and stattin. On sliding scale on losartan for BP SCD for DVT ppx, Full code Attending attestation Patient was seen and evaluated at the bedside myself, agree with PELT DROPPER note.
[2023-06-14 20:24] LABS: POC Glucose,Bedside 176 (70-110)
[2023-06-14] MEDS: humaLOG 100 UNITS/ML 3ML VIAL (SSI) SQ (20:35)
[2023-06-14] MEDS: CARVEDILOL 3.125MG TABLET 3.125 MG PO (20:36)
[2023-06-14] MEDS: ATORVASTATIN 40MG TABLET 40 MG PO (20:36)
[2023-06-14] MEDS: SACUBITRIL/VALSARTAN 24-26MG TABLET 1 EACH PO (20:36)
[2023-06-15] VITALS (10 sets, daily range): BP systolic 112–145; BP diastolic 67–94; PULSE 80–107; RESP 16–20; TEMP 36.7–36.8; O2SAT 95–98; BMI 29.4
--- NOTE | 2023-06-15 00:54 | PC.NURSE ---
JUAN GARG AND OPSITE C/D/I TO RIGHT RADIAL INSERTION SITE. VITAL SIGNS STABLE. AFEBRILE. DENIES CP/SOA/DISCOMFORT. NSR ON TELE.
[2023-06-15] MEDS: HEPARIN SODIUM 5,000 UNIT/ML VIAL 5000 UNIT SQ ×3 (02:06→18:09)
--- NOTE | 2023-06-15 03:01 | PC.NURSE ---
PATIENT HAS SLEPT AT SHORT INTERVALS. NO C/O PAIN/DISCOMFORT. DRSG TO RIGHT RADIAL C/D/I. NO SIGN OF ACTIVE BLEEDING. VSS/AFEBRILE.
[2023-06-15 05:16] LABS: POC Glucose,Bedside 144 (70-110)
[2023-06-15 07:29] LABS: Basophils # 0.1 K/mm3 (0-0.2); Basophils % 0.6 % (0.1-2.0); Eosinophils # 0.1 K/mm3 (0.0-0.4); Eosinophils % 1.2 % (0.1-12.0); Hematocrit 48.2 % (42.0-52.0); Hemoglobin 16.3 g/dL (14.1-18.0); Lymphocytes # 1.6 K/mm3 (0.7-4.5); Lymphocytes % 16.1 % (10-50); Mean Corpuscular HGB Conc 33.7 g/dL (31.8-35.4); Mean Corpuscular Hemoglobin 28.6 pg (27.0-31.2); Mean Corpuscular Volume 84.8 fl (80-94); Mean Platelet Volume 7.7 fl (7.4-10.4); Monocytes # 0.6 K/mm3 (0.1-1.0); Monocytes % 6.2 % (1.7-9.3); Neutrophils # 7.7 K/mm3 (1.8-7.8); Platelet Count 222 K/mm3 (142-424); Red Blood Count 5.69 M/mm3 (4.60-6.20); Red Cell Distribution Width 13.6 % (11.5-17.5); White Blood Count 10.1 K/mm3 (4.8-10.8)
[2023-06-15 07:41] LABS: Anion Gap 12.2 mEq/L (5-15); Blood Urea Nitrogen 13 mg/dl (9-20); Calcium 8.6 mg/dl (8.4-10.2); Carbon Dioxide 25 mmol/L (22.0-30.0); Chloride 105 mmol/L (98-107); Creatinine Clearance Estimated 97 mL/min (50-200); Estimated Glomerular Filt Rate 95 ml/min (>60); GFR (African American) 115 ML/MIN (>60); Glucose 135 mg/dl (74-100); Potassium 4.2 mmoL/L (3.5-5.1); Sodium 138 mmol/L (136-145)
[2023-06-15] MEDS: PRASUGREL 10MG TAB 10 MG PO (09:17)
[2023-06-15] MEDS: DAPAGLIFLOZIN PROPANEDIOL 10 MG TABLET PO (09:17)
[2023-06-15] MEDS: CARVEDILOL 3.125MG TABLET 3.125 MG PO ×2 (09:17→20:40)
[2023-06-15] MEDS: ASPIRIN 81MG CHEWABLE TABLET 81 MG PO (09:17)
[2023-06-15] MEDS: SACUBITRIL/VALSARTAN 24-26MG TABLET 1 EACH PO ×2 (09:17→20:40)
[2023-06-15] MEDS: humaLOG 100 UNITS/ML 3ML VIAL (SSI) SQ ×3 (11:44→20:40)
[2023-06-15 11:52] LABS: POC Glucose,Bedside 159 (70-110)
--- NOTE | 2023-06-15 12:42 | P.PN_ITS ---
Subjective *Date: 06/15/23 *Time: 12:42 Interval history: patient was seen and evaluated at the bedside. No reported acute events overnight, denies chest pain, shortness of breath, nausea, vomiting, abdominal pain. Exam Data for Last 24 hours Vital signs and Labs for Last 24 Hours: Temp Pulse Resp BP Pulse Ox O2 Del Method 98.3 F 100 H 16 137/83 95 Room Air 06/15/23 11:28 06/15/23 12:00 06/15/23 11:28 06/15/23 11:28 06/15/23 11:28 06/15/23 11:28 Laboratory Results - last 24 hr 06/14/23 12:14: WBC 7.3, RBC 6.09, Hgb 17.3, Hct 52.5 H, MCV 86.3, MCH 28.4, MCHC 32.9, RDW 13.6, Plt Count 265, MPV 8.1, Neut % (Auto) 64.2, Lymph % (Auto) 26.0, Stewart % (Auto) 7.0, Eos % (Auto) 2.1, Baso % (Auto) 0.8, Neut # (Auto) 4.7, Lymph # (Auto) 1.9, [place] # (Auto) 0.5, Eos # (Auto) 0.2, Baso # (Auto) 0.1, Sodium 141, Potassium 3.8, Chloride 104, Carbon Dioxide 24, Anion Gap 16.8 H, BUN 18, Creatinine 0.90, Estimated Creat Clear 95, Estimated GFR 83, Est GFR ( Amer) 101, Glucose 274 H, Calcium 8.7, Magnesium 1.8, Total Bilirubin 1.1, AST 53, ALT 43, Alkaline Phosphatase 131 H, Troponin I 0.61 H, Total Protein 8.0, Albumin 4.6, Globulin 3.4 H, Albumin/Globulin Ratio 1.4, TSH 1.66 06/14/23 14:25: Troponin I 0.56 H 06/14/23 17:44: Activated Clotting Time 289 H* 06/14/23 20:07: POC Glucose 176 H 06/15/23 05:08: POC Glucose 144 H 06/15/23 06:18: WBC 10.1 D, RBC 5.69, Hgb 16.3, Hct 48.2, MCV 84.8, MCH 28.6, MCHC 33.7, RDW 13.6, Plt Count 222, MPV 7.7, Neut % (Auto) 76.0, Lymph % (Auto) 16.1, Stewart % (Auto) 6.2, Eos % (Auto) 1.2, Baso % (Auto) 0.6, Neut # (Auto) 7.7, Lymph # (Auto) 1.6, Stewart # (Auto) 0.6, Eos # (Auto) 0.1, Baso # (Auto) 0.1, Sodium 138, Potassium 4.2, Chloride 105, Carbon Dioxide 25, Anion Gap 12.2, BUN 13 D, Creatinine 0.80, Estimated Creat Clear 97, Estimated GFR 95, Est GFR ( Amer) 115, Glucose 135 H D, Calcium 8.6 06/15/23 11:30: POC Glucose 159 H I & O for Last 24 hours: Intake & Output 06/12/23 06/13/23 06/14/23 06/15/23 23:59 23:59 23:59 23:59 Intake Total 462 / 462 270 / 270 Output Total 1250 / 1250 1600 / 1600 Balance -788 / -788 -1330 / -1330 Weight 99.96 kg 100.743 kg Constitutional Constitutional: no acute distress *Routine HEENT Exam Head: Present normocephalic Eye: Present EOMI and PERRL ENT: Present mucous membranes moist *Routine Neck Exam Neck: Present supple; Absent lymphadenopathy *Routine Respiratory Exam Respiratory: Present CTA bilaterally *Routine Cardiovascular Exam Cardiovascular: Present RRR *Routine Abdominal Exam Abdominal: Present soft and normoactive bowel sounds; Absent tenderness *Routine Extremities Exam Extremities: Absent cyanosis, clubbing or edema *Routine Skin Exam Skin: Present warm; Absent rash *Routine Neurological Exam Neurological: Present alert and oriented X3 Assessment and Plan *Assessment and plan (1) Chest pain: Status: Acute Qualifiers: Chest pain type: chest pain due to myocardial ischemia Ischemic chest pain type: unspecified angina pectoris type Qualified Code(s): I25.9 - Chronic ischemic heart disease, unspecified Category: Medical Code(s): R07.9 - Chest pain, unspecified (2) Tachycardia: Status: Acute Category: Medical Code(s): R00.0 - Tachycardia, unspecified (3) Status post placement of stent in right coronary artery: Status: Acute Category: Surgical Code(s): Z95.5 - Presence of coronary angioplasty implant and graft (4) Status post insertion of drug-eluting stent into left anterior descending (LAD) artery for coronary artery disease: Status: Acute Category: Surgical Code(s): Z95.5 - Presence of coronary angioplasty implant and graft (5) Non-ST elevation [place] (NSTEMI): Status: Acute Category: Medical Code(s): I21.4 - Non-ST elevation (NSTEMI) myocardial infarction (6) Heart failure with reduced ejection fraction due to coronary artery disease: Status: Acute Category: Medical Code(s): I50.20 - Unspecified systolic (congestive) heart failure; I25.10 - Atherosclerotic heart disease of [place] coronary artery without angina pectoris (7) Hypertension: Status: Acute Qualifiers: Hypertension type: unspecified Qualified Code(s): I10 - Essential (primary) hypertension Category: Medical Code(s): I10 - Essential (primary) hypertension (8) Hyperlipidemia: Status: Acute Qualifiers: Hyperlipidemia type: unspecified Qualified Code(s): E78.5 - Hyperlipidemia, unspecified Category: Medical Code(s): E78.5 - Hyperlipidemia, unspecified (9) Diabetes mellitus, type 2: Status: Acute Qualifiers: 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 Stated has had 2 days of constant chest discomfort in the substernal region nonradiating nonexertional not associated with diaphoresis or dyspnea. On arrival patient was tachycardic, intermittent chest discomfort, lebvated troponin, with non specific changes on the EKG, patient was taken emergently to blood and plasma laboratory assistant. Was found to have Severe to critical two-vessel coronary disease that was successfully stenting of the mid to distal dominant right coronary and the proximal to mid LAD severe disease reduced to zero. Severely reduced ejection fraction with regional wall motion abnormalities. Patient arrived to floor post procedure. hemodinamically stable. Plan as follow: -CP and tachycardia with elevated troponin secondary to CAD: s/p stent placement LAD and right coronary: Admit patient for continue cardiac telemetry Cardiology on board. monitor for bleeding or hemodinamically decompensation VS per unit protocols repeat labs in the morning -Reduced EF likely secondary to CAD: per cardiology will follow up for possible life vest monitor HR and BP monitor O2 sat -HTN, HLD, Diabetes. conditions reviewed stable. resumed aspirin and stattin. On sliding scale on losartan for BP SCD for DVT ppx, Full code awaiting Life vest
[2023-06-15 16:31] LABS: POC Glucose,Bedside 192 (70-110)
--- NOTE | 2023-06-15 17:25 | PC.NURSE ---
Pt is alert and oriented. Lung sounds clear. Right radial dressing CDI. Bowel sounds active, abdomen soft and nontender. Patient has had no complaints this shift. Ambulating to the restroom. Call light in reach.
[2023-06-15 20:36] LABS: POC Glucose,Bedside 230 (70-110)
[2023-06-15] MEDS: ATORVASTATIN 40MG TABLET 40 MG PO (20:40)
[2023-06-16] VITALS (10 sets, daily range): BP systolic 116–130; BP diastolic 67–82; PULSE 84–108; RESP 16–18; TEMP 36.5–36.8; O2SAT 94–98; BMI 29.0
[2023-06-16] MEDS: HEPARIN SODIUM 5,000 UNIT/ML VIAL 5000 UNIT SQ ×3 (01:29→18:02)
--- NOTE | 2023-06-16 03:18 | PC.NURSE ---
POST-OP DAY 2 CARDIAC CATH WITH STENT PLACEMENTS. PATIENT STATES HE FEELS GOOD . DENIES PAIN/SOA/DISCOMFORT. DRSG TO RIGHT RADIAL C/D/I.
[2023-06-16 06:20] LABS: POC Glucose,Bedside 134 (70-110)
[2023-06-16 07:21] LABS: Basophils # 0.1 K/mm3 (0-0.2); Basophils % 0.6 % (0.1-2.0); Eosinophils # 0.2 K/mm3 (0.0-0.4); Eosinophils % 2.3 % (0.1-12.0); Hematocrit 47.9 % (42.0-52.0); Hemoglobin 16.2 g/dL (14.1-18.0); Lymphocytes % 22.3 % (10-50); Mean Corpuscular HGB Conc 33.9 g/dL (31.8-35.4); Mean Corpuscular Volume 85.5 fl (80-94); Mean Platelet Volume 7.8 fl (7.4-10.4); Monocytes # 0.7 K/mm3 (0.1-1.0); Monocytes % 7.9 % (1.7-9.3); Neutrophils # 5.9 K/mm3 (1.8-7.8); Neutrophils % 66.9 % (37.0-80.0); Platelet Count 214 K/mm3 (142-424); Red Cell Distribution Width 13.4 % (11.5-17.5); White Blood Count 8.8 K/mm3 (4.8-10.8)
[2023-06-16 07:46] LABS: Chloride 104 mmol/L (98-107); Sodium 140 mmol/L (136-145)
[2023-06-16 07:47] LABS: Potassium 4.4 mmoL/L (3.5-5.1)
[2023-06-16 07:50] LABS: Anion Gap 15.4 mEq/L (5-15); Blood Urea Nitrogen 17 mg/dl (9-20); Calcium 8.5 mg/dl (8.4-10.2); Carbon Dioxide 25 mmol/L (22.0-30.0); Creatinine Clearance Estimated 95 mL/min (50-200); Estimated Glomerular Filt Rate 83 ml/min (>60); GFR (African American) 101 ML/MIN (>60); Glucose 146 mg/dl (74-100)
[2023-06-16] MEDS: ASPIRIN 81MG CHEWABLE TABLET 81 MG PO (08:48)
[2023-06-16] MEDS: DAPAGLIFLOZIN PROPANEDIOL 10 MG TABLET PO (08:49)
[2023-06-16] MEDS: PRASUGREL 10MG TAB 10 MG PO (08:49)
[2023-06-16] MEDS: SACUBITRIL/VALSARTAN 24-26MG TABLET 1 EACH PO ×2 (08:49→20:25)
[2023-06-16] MEDS: CARVEDILOL 3.125MG TABLET 3.125 MG PO ×2 (08:49→20:25)
[2023-06-16] MEDS: humaLOG 100 UNITS/ML 3ML VIAL (SSI) SQ ×3 (10:35→20:25)
[2023-06-16 11:01] LABS: POC Glucose,Bedside 200 (70-110)
--- NOTE | 2023-06-16 12:43 | PC.NURSE ---
Rounded on patient. No concerns at this time, all questions answered per MD.
--- NOTE | 2023-06-16 12:50 | EXP.PN ---
Subjective *Date: 06/16/23 *Time: 12:50 Interval history: patient was seen and evaluated at the bedside. No reported acute events overnight, denies chest pain, shortness of breath, nausea, vomiting, abdominal pain. Exam Data for Last 24 hours Vital signs and Labs for Last 24 Hours: Temp Pulse Resp BP Pulse Ox O2 Del Method 97.7 F 100 H 18 125/82 94 L Room Air 06/16/23 11:21 06/16/23 12:35 06/16/23 11:21 06/16/23 11:21 06/16/23 11:21 06/16/23 11:21 Laboratory Results - last 24 hr 06/15/23 16:24: POC Glucose 192 H 06/15/23 20:27: POC Glucose 230 H 06/16/23 06:13: POC Glucose 134 H 06/16/23 06:38: WBC 8.8, RBC 5.60, Hgb 16.2, Hct 47.9, MCV 85.5, MCH 29.0, MCHC 33.9, RDW 13.4, Plt Count 214, MPV 7.8, Neut % (Auto) 66.9, Lymph % (Auto) 22.3, Taliaferro % (Auto) 7.9, Eos % (Auto) 2.3, Baso % (Auto) 0.6, Neut # (Auto) 5.9, Lymph # (Auto) 2.0, [place]ferro # (Auto) 0.7, Eos # (Auto) 0.2, Baso # (Auto) 0.1, Sodium 140, Potassium 4.4, Chloride 104, Carbon Dioxide 25, Anion Gap 15.4 H, BUN 17 D, Creatinine 0.90, Estimated Creat Clear 95, Estimated GFR 83, Est GFR ( Amer) 101, Glucose 146 H, Calcium 8.5 06/16/23 10:32: POC Glucose 200 H I & O for Last 24 hours: Intake & Output 06/13/23 06/14/23 06/15/23 06/16/23 23:59 23:59 23:59 23:59 Intake Total 462 / 462 1540 / 1540 620 / 620 Output Total 1250 / 1250 1600 / 1600 0 / 0 Balance -788 / -788 -60 / -60 620 / 620 Weight 99.96 kg 100.743 kg 99.246 kg Constitutional Constitutional: no acute distress *Routine HEENT Exam Head: Present normocephalic Eye: Present EOMI and PERRL ENT: Present mucous membranes moist *Routine Neck Exam Neck: Present supple; Absent lymphadenopathy *Routine Respiratory Exam Respiratory: Present CTA bilaterally *Routine Cardiovascular Exam Cardiovascular: Present RRR *Routine Abdominal Exam Abdominal: Present soft and normoactive bowel sounds; Absent tenderness *Routine Extremities Exam Extremities: Absent cyanosis, clubbing or edema *Routine Skin Exam Skin: Present warm; Absent rash *Routine Neurological Exam Neurological: Present alert and oriented X3 Assessment and Plan *Assessment and plan (1) Chest pain: Status: Acute Qualifiers: Chest pain type: chest pain due to myocardial ischemia Ischemic chest pain type: unspecified angina pectoris type Qualified Code(s): I25.9 - Chronic ischemic heart disease, unspecified Category: Medical Code(s): R07.9 - Chest pain, unspecified (2) Tachycardia: Status: Acute Category: Medical Code(s): R00.0 - Tachycardia, unspecified (3) Status post placement of stent in right coronary artery: Status: Acute Category: Surgical Code(s): Z95.5 - Presence of coronary angioplasty implant and graft (4) Status post insertion of drug-eluting stent into left anterior descending (LAD) artery for coronary artery disease: Status: Acute Category: Surgical Code(s): Z95.5 - Presence of coronary angioplasty implant and graft (5) Non-ST elevation [place] (NSTEMI): Status: Acute Category: Medical Code(s): I21.4 - Non-ST elevation (NSTEMI) myocardial infarction (6) Heart failure with reduced ejection fraction due to coronary artery disease: Status: Acute Category: Medical Code(s): I50.20 - Unspecified systolic (congestive) heart failure; I25.10 - Atherosclerotic heart disease of [place] coronary artery without angina pectoris (7) Hypertension: Status: Acute Qualifiers: Hypertension type: unspecified Qualified Code(s): I10 - Essential (primary) hypertension Category: Medical Code(s): I10 - Essential (primary) hypertension (8) Hyperlipidemia: Status: Acute Qualifiers: Hyperlipidemia type: unspecified Qualified Code(s): E78.5 - Hyperlipidemia, unspecified Category: Medical Code(s): E78.5 - Hyperlipidemia, unspecified (9) Diabetes mellitus, type 2: Status: Acute Qualifiers: Diabetes mellitus residential insulin use: without residential use Diabetes mellitus complication status: with other specified complication Qualified Code(s): E11.69 - Type 2 diabetes mellitus with other specified complication Category: Medical Code(s): E11.9 - Type 2 diabetes mellitus without complications Plan 72-year-old male PMHx of diabetes, HLD, presenting today with chest pain. Stated has had 2 days of constant chest discomfort in the substernal region nonradiating nonexertional not associated with diaphoresis or dyspnea. 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 Was found to have Severe to critical two-vessel coronary disease that was successfully stenting of the mid to distal dominant right coronary and the proximal to mid LAD severe disease reduced to zero. Severely reduced ejection fraction with regional wall motion abnormalities. Patient arrived to floor post procedure. hemodinamically stable. Plan as follow: -CP and tachycardia with elevated troponin secondary to CAD: s/p stent placement LAD and right coronary: Admit patient for continue cardiac telemetry Cardiology on board. monitor for bleeding or hemodinamically decompensation VS per unit protocols repeat labs in the morning -Reduced EF likely secondary to CAD: per cardiology will follow up for possible life vest monitor HR and BP monitor O2 sat -HTN, HLD, Diabetes. conditions reviewed stable. resumed aspirin and stattin. On sliding scale on losartan for BP SCD for DVT ppx, Full code awaiting Life vest, dc likely tomorrow
[2023-06-16 16:34] LABS: POC Glucose,Bedside 244 (70-110)
--- NOTE | 2023-06-16 16:47 | PC.NURSE ---
No complaints stated this shift. Pt denies any discomfort. Voiding well. VSS. Medications administered per mar. Ambulating without difficulty independently. Call light within reach.
[2023-06-16 20:24] LABS: POC Glucose,Bedside 220 (70-110)
[2023-06-16] MEDS: ATORVASTATIN 40MG TABLET 40 MG PO (20:25)
[2023-06-17] VITALS: BP 123/71; PULSE 60; PULSE 79; RESP 16; TEMP 37; O2SAT 98
[2023-06-17] MEDS: HEPARIN SODIUM 5,000 UNIT/ML VIAL 5000 UNIT SQ ×2 (02:24→11:00)
--- NOTE | 2023-06-17 03:06 | PC.NURSE ---
Pt seems very pleasant and has no complaints this shift thus far. Pt has NSR and remains on telemetry. Pt denies pain and needs at this time.
[2023-06-17 04:00] VITALS: BP 125/73; PULSE 77; RESP 18; TEMP 36.7; O2SAT 98; BMI 29.0
[2023-06-17 05:38] VITALS: PULSE 60
[2023-06-17 05:52] LABS: POC Glucose,Bedside 126 (70-110)
[2023-06-17 07:09] LABS: Basophils # 0.1 K/mm3 (0-0.2); Basophils % 0.7 % (0.1-2.0); Eosinophils # 0.2 K/mm3 (0.0-0.4); Eosinophils % 2.5 % (0.1-12.0); Hemoglobin 15.5 g/dL (14.1-18.0); Mean Corpuscular HGB Conc 33.7 g/dL (31.8-35.4); Mean Corpuscular Hemoglobin 28.7 pg (27.0-31.2); Mean Corpuscular Volume 85.1 fl (80-94); Mean Platelet Volume 7.5 fl (7.4-10.4); Monocytes # 0.6 K/mm3 (0.1-1.0); Monocytes % 8.2 % (1.7-9.3); Neutrophils # 4.6 K/mm3 (1.8-7.8); Neutrophils % 61.6 % (37.0-80.0); Platelet Count 197 K/mm3 (142-424); Red Blood Count 5.41 M/mm3 (4.60-6.20); Red Cell Distribution Width 13.5 % (11.5-17.5); White Blood Count 7.5 K/mm3 (4.8-10.8)
[2023-06-17 07:19] LABS: Chloride 106 mmol/L (98-107)
[2023-06-17 07:20] LABS: Sodium 139 mmol/L (136-145)
[2023-06-17 07:23] LABS: Blood Urea Nitrogen 20 mg/dl (9-20); Calcium 8.3 mg/dl (8.4-10.2); Carbon Dioxide 22 mmol/L (22.0-30.0); Creatinine Clearance Estimated 95 mL/min (50-200); Estimated Glomerular Filt Rate 83 ml/min (>60); GFR (African American) 101 ML/MIN (>60); Glucose 154 mg/dl (74-100)
--- NOTE | 2023-06-17 07:24 | CA_ITS ---
APPROVED REPORT EXAM: Comprehensive 2D, Doppler, and color-flow Echocardiogram Blending Supervisor: Elsa Albert RT(R) Ht: 6 ft 1 in Wt: 218lbs BSA: 2.23 BP: 125/82 mmHg Indications: NSTEMI, HTN, DM, hyperlipidemia, EF 30-35% on cath 06/14/23, CHF 2D Dimensions LVEF (Cason's) 54.30 % M: 52 - 72 LV Volume 111.10 mL M: 62 - 150 LV Volume Index 49.8 mL/m2 M: 34 - 74 LA Volume 36.10 mL LA Volume Index 16.19 mL/m2 (M/F) 16-34 EF AP4 58.50 % EF AP2 53.0 % EF BP 54.3 % GL Strain -21.6 % M-Mode Dimensions RVDd 2.98 cm (0.9-2.6) LA Diam 4.26 cm (1.9-4.0) LVDd 6.18 cm (3.5-5.7) LVDs 5.34 cm (3.5-5.7) IVSd 0.71 cm (0.6-1.1) PWd 0.76 cm (0.6-1.1) EF (Teich) 28.50% FS 13.60% EDV (Teich) 192.60 mL ESV (Teich) 137.70 mL Left Ventricle The left ventricle is normal size. The left ventricular systolic function is low-normal. Proximal septal thickening is noted. There is mild hypokinesis of the distal inferior and inferoseptal LV burden. There is also mild hypokinesis of the mid to distal anteroseptal LV burden. The left ventricular diastolic function is normal. LVEF is 50%. Right Ventricle The right ventricle is normal size. The right ventricular systolic function is normal. Atria The left atrium size is normal. The right atrium size is normal. There is no Doppler evidence of interatrial shunt. Aortic Valve The aortic valve is mildly thickened. There is no aortic valvular stenosis. Mild aortic regurgitation. Mitral Valve The mitral valve leaflets are mildly thickened. No evidence of mitral valve stenosis. Trace mitral regurgitation. Tricuspid Valve The tricuspid valve leaflets are thin and pliable. Trace tricuspid regurgitation. There is insufficient TR jet to estimate RVSP. Pulmonic Valve The pulmonary valve is normal in structure. Trace pulmonic regurgitation. Great Vessels The aortic root is normal in size. The ascending aorta is normal in size. IVC is normal in size and collapses >50% with inspiration. Pericardium There is no pericardial effusion. Other Information Study Quality: Fair Conclusion Low normal LV systolic function (LVEF 50%). Mild hypokinesis of the distal inferior and inferoseptal LV burden, as well as the mid to distal anteroseptal LV burden. Mild AI. Electronically signed by : Gabrielle Marte MD 06/17/2023 12:43:44
--- NOTE | 2023-06-17 07:24 | EXP.DC.SUM ---
General Admission date:: 06/14/23 Discharge date: 06/17/23 HPI HPI HPI: This is a 72-year-old male PMHx of diabetes, HLD, presenting today with chest pain. Stated has had 2 days of constant chest discomfort in the substernal region nonradiating nonexertional not associated with diaphoresis or dyspnea. Denies any pleuritic or positional aspect of this. No fevers chills cough or any other symptoms. No lower extremity swelling no history of MS heart failure etc. Patient admitted for cath labs. patient seen after procedure. Hospital Course Hospital Course Hospital Course: 72-year-old male PMHx of diabetes, HLD, presenting today with chest pain. Stated has had 2 days of constant chest discomfort in the substernal region nonradiating nonexertional not associated with diaphoresis or dyspnea. 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 Was found to have Severe to critical two-vessel coronary disease that was successfully stenting of the mid to distal dominant right coronary and the proximal to mid LAD severe disease reduced to zero. Severely reduced ejection fraction with regional wall motion abnormalities noted during cath. Patient monitored over the weekend. Repeat echo performed morning of the , EF normal at this time. No indication for LifeVest. Stable for discharge home with close follow-up as an outpatient. Problems addressed during hospitalization as follows: -Angina and tachycardia with elevated troponin secondary to CAD. -NSTEMI: -Hypertension -Hyperlipidemia s/p stent placement LAD and right coronary. Cardiology consulted, taken to [facility]. Monitored on telemetry through the weekend. Patient has done well. Repeat echo showed normalization of EF. Will continue with goal-directed therapy including aspirin 81 daily, Lipitor 40 g nightly, carvedilol 3.125 mg twice daily, Farxiga 10 mg daily, prasugrel 10 mg daily, and Entresto twice daily. Follow-up with cardiology in a week. No further cardiac events over the weekend. Stable for discharge home. -Reduced EF likely secondary to CAD: Reduced EF noticed during heart cath. Repeat echo performed on day of discharge which showed return to normalization of EF. No indication for LifeVest. Stable to discharge home. Exam Data for Last 24 hours Vital signs and Labs for Last 24 Hours: Temp Pulse Resp BP Pulse Ox O2 Del Method 98.1 F 60 18 125/73 98 Room Air 06/17/23 04:00 06/17/23 05:38 06/17/23 04:00 06/17/23 04:00 06/17/23 04:00 06/17/23 06:47 Laboratory Results - last 24 hr 06/16/23 06:38: WBC 8.8, RBC 5.60, Hgb 16.2, Hct 47.9, MCV 85.5, MCH 29.0, MCHC 33.9, RDW 13.4, Plt Count 214, MPV 7.8, Neut % (Auto) 66.9, Lymph % (Auto) 22.3, [place] % (Auto) 7.9, Eos % (Auto) 2.3, Baso % (Auto) 0.6, Neut # (Auto) 5.9, Lymph # (Auto) 2.0, [place] # (Auto) 0.7, Eos # (Auto) 0.2, Baso # (Auto) 0.1, Sodium 140, Potassium 4.4, Chloride 104, Carbon Dioxide 25, Anion Gap 15.4 H, BUN 17 D, Creatinine 0.90, Estimated Creat Clear 95, Estimated GFR 83, Est GFR ( Amer) 101, Glucose 146 H, Calcium 8.5 06/16/23 10:32: POC Glucose 200 H 06/16/23 16:19: POC Glucose 244 H 06/16/23 20:00: POC Glucose 220 H 06/17/23 05:45: POC Glucose 126 H 06/17/23 06:50: WBC 7.5, RBC 5.41, Hgb 15.5, Hct 46.0, MCV 85.1, MCH 28.7, MCHC 33.7, RDW 13.5, Plt Count 197, MPV 7.5, Neut % (Auto) 61.6, Lymph % (Auto) 27.0, [place] % (Auto) 8.2, Eos % (Auto) 2.5, Baso % (Auto) 0.7, Neut # (Auto) 4.6, Lymph # (Auto) 2.0, [place] # (Auto) 0.6, Eos # (Auto) 0.2, Baso # (Auto) 0.1 I & O for Last 24 hours: Intake & Output 06/14/23 06/15/23 06/16/23 06/17/23 23:59 23:59 23:59 23:59 Intake Total 462 / 462 1540 / 1540 1860 / 1920 60 / 60 Output Total 1250 / 1250 1600 / 1600 0 / 0 0 / 0 Balance -788 / -788 -60 / -60 1860 / 1920 60 / 60 Weight 99.96 kg 100.743 kg 99.246 kg 99.337 kg Constitutional Constitutional: no acute distress, average body habitus, chronically ill appearing and cooperative *Routine HEENT Exam Head: Present normocephalic Eye: Present EOMI and PERRL ENT: Present mucous membranes moist *Routine Neck Exam Neck: Present supple; Absent lymphadenopathy Routine Chest/Breast/Axilla Exam Chest wall: Absent tenderness *Routine Respiratory Exam Respiratory: Present CTA bilaterally *Routine Cardiovascular Exam Cardiovascular: Present RRR *Routine Abdominal Exam Abdominal: Present soft and normoactive bowel sounds; Absent tenderness *Routine Extremities Exam Extremities: Absent cyanosis, clubbing or edema *Routine Skin Exam Skin: Present warm; Absent rash *Routine Neurological Exam Neurological: Present alert, oriented X3 and moving all extremities; Absent altered mental status Results Data Completed and Pending Labs on day of discharge: Labs from last 24 hours 06/17/23 06/17/23 06/16/23 06:50 05:45 20:00 WBC 7.5 RBC 5.41 Hgb 15.5 Hct 46.0 MCV 85.1 MCH 28.7 MCHC 33.7 RDW 13.5 Plt Count 197 MPV 7.5 Neut % (Auto) 61.6 Lymph % (Auto) 27.0 [place] % (Auto) 8.2 Eos % (Auto) 2.5 Baso % (Auto) 0.7 Neut # (Auto) 4.6 Lymph # (Auto) 2.0 [place] # (Auto) 0.6 Eos # (Auto) 0.2 Baso # (Auto) 0.1 Sodium Potassium Chloride Carbon Dioxide Anion Gap BUN Creatinine Estimated Creat Clear Estimated GFR Est GFR ( Amer) Glucose POC Glucose 126 H 220 H Calcium 06/16/23 06/16/23 06/16/23 16:19 10:32 06:38 WBC 8.8 RBC 5.60 Hgb 16.2 Hct 47.9 MCV 85.5 MCH 29.0 MCHC 33.9 RDW 13.4 Plt Count 214 MPV 7.8 Neut % (Auto) 66.9 Lymph % (Auto) 22.3 [place] % (Auto) 7.9 Eos % (Auto) 2.3 Baso % (Auto) 0.6 Neut # (Auto) 5.9 Lymph # (Auto) 2.0 [place] # (Auto) 0.7 Eos # (Auto) 0.2 Baso # (Auto) 0.1 Sodium 140 Potassium 4.4 Chloride 104 Carbon Dioxide 25 Anion Gap 15.4 H BUN 17 D Creatinine 0.90 Estimated Creat Clear 95 Estimated GFR 83 Est GFR ( Amer) 101 Glucose 146 H POC Glucose 244 H 200 H Calcium 8.5 DS: Diagnosis Discharge Diagnosis (1) Non-ST elevation MS (NSTEMI): Status: Acute Code(s): I21.4 - Non-ST elevation (NSTEMI) myocardial infarction (2) Chest pain: Status: Acute Code(s): R07.9 - Chest pain, unspecified Qualifiers: Chest pain type: chest pain due to myocardial ischemia Ischemic chest pain type: unspecified angina pectoris type Qualified Code(s): I25.9 - Chronic ischemic heart disease, unspecified (3) Tachycardia: Status: Acute Code(s): R00.0 - Tachycardia, unspecified (4) Status post placement of stent in right coronary artery: Status: Acute Code(s): Z95.5 - Presence of coronary angioplasty implant and graft (5) Status post insertion of drug-eluting stent into left anterior descending (LAD) artery for coronary artery disease: Status: Acute Code(s): Z95.5 - Presence of coronary angioplasty implant and graft (6) Heart failure with reduced ejection fraction due to coronary artery disease: Status: Acute Code(s): I50.20 - Unspecified systolic (congestive) heart failure; I25.10 - Atherosclerotic heart disease of [place] coronary artery without angina pectoris (7) Hypertension: Status: Acute Code(s): I10 - Essential (primary) hypertension Qualifiers: Hypertension type: unspecified Qualified Code(s): I10 - Essential (primary) hypertension (8) Hyperlipidemia: Status: Acute Code(s): E78.5 - Hyperlipidemia, unspecified Qualifiers: Hyperlipidemia type: unspecified Qualified Code(s): E78.5 - Hyperlipidemia, unspecified (9) Diabetes mellitus, type 2: Status: Acute Code(s): E11.9 - Type 2 diabetes mellitus without complications Qualifiers: Diabetes mellitus complication status: with other specified complication Diabetes mellitus mcc insulin use: without longwall foreman use Qualified Code(s): E11.69 - Type 2 diabetes mellitus with other specified complication Meds Home Medications and Allergies Home Medications Medication Instructions Recorded Confirmed Type glipizide 5 mg tablet, extended 5 mg PO BID Diabetes 04/29/18 06/14/23 History release 24 hr metformin 1,000 mg tablet 1,000 mg PO BID Diabetes 04/29/18 06/15/23 History dapagliflozin propanediol 10 mg 10 mg PO DAILY Diabetes 06/14/23 06/14/23 History tablet (Farxiga) aspirin 81 mg chewable tablet 81 mg PO DAILY 30 days #30 tabs 06/17/23 Rx atorvastatin 40 mg tablet 40 mg PO HS 30 days #30 tabs 06/17/23 Rx carvedilol 3.125 mg tablet 3.125 mg PO BID 30 days #60 tabs 06/17/23 Rx prasugrel 10 mg tablet 10 mg PO DAILY 30 days #30 tabs 06/17/23 Rx sacubitril 24 mg-valsartan 26 mg 1 tab PO BID 30 days #60 tabs 06/17/23 Rx tablet (Entresto) New Prescriptions to Start Prescriptions: aspirin Ermias Chávez atorvastatin Ermias Chávez carvedilol Ermias Chávez prasugrel Ermias Chávez sacubitril-valsartan [Entresto] Ermias Chávez Allergies Allergy/AdvReac Type Severity Reaction Status Date / Time No Known Allergies Allergy Verified 02/05/21 09:31 Discharge Plan Disposition Patient Disposition: Home, Self-Care Condition: Fair Discharge Order Discharge Orders: Discharge Order (Routine); Ordered 06/17/23 Ordered By: Ermias Chávez Follow up Plan Follow up with: Isaac Bishop MD [Primary Care Provider] - See instructions (Please call tomorrow for your follow up appt. ) Brandon Bernardo MD [Staff Physician] - 1 week (The office will call you with a follow up appt. ) Prescriptions/Medication Reconciliation: New aspirin 81 mg Tablet,Chewable 81 mg PO DAILY 30 Days Qty: 30 0RF atorvastatin 40 mg Tablet 40 mg PO HS 30 Days Qty: 30 0RF carvedilol 3.125 mg Tablet 3.125 mg PO BID 30 Days Qty: 60 0RF prasugrel 10 mg Tablet 10 mg PO DAILY 30 Days Qty: 30 0RF Entresto 24-26 mg Tablet 1 tab PO BID 30 Days Qty: 60 0RF Continued glipizide 5 MG tablet extended release 24hr 5 mg PO BID metformin 1,000 MG tablet 1,000 mg PO BID Farxiga 10 mg tablet 10 mg PO DAILY Discontinued aspirin [Aspir-Anuja] 325 mg tablet,delayed release (DR/EC) 325 mg PO DAILY atorvastatin 10 MG tablet 10 mg PO HS losartan 50 mg tablet 50 mg PO DAILY Problem Reconciliation Problems Reviewed?: Yes Patient Discharge Instructions ACTIVITY: Continue current activity DIET: continue same diet Patient Instructions: DI for Heart Attack, DI for Cardiac Catheterization, DI for Surgical Site Infection, DI for Coronary Artery Disease Providers Primary Care Provider: Isaac Bishop Admit Provider: Theo Delgado Attending Provider: Theo Delgado
[2023-06-17 08:00] VITALS: BP 137/66; PULSE 100; PULSE 90; RESP 18; TEMP 36.6; O2SAT 95
[2023-06-17] MEDS: CARVEDILOL 3.125MG TABLET 3.125 MG PO (08:50)
[2023-06-17] MEDS: SACUBITRIL/VALSARTAN 24-26MG TABLET 1 EACH PO (08:50)
[2023-06-17] MEDS: ASPIRIN 81MG CHEWABLE TABLET 81 MG PO (08:50)
[2023-06-17] MEDS: PRASUGREL 10MG TAB 10 MG PO (08:50)
[2023-06-17] MEDS: DAPAGLIFLOZIN PROPANEDIOL 10 MG TABLET PO (08:50)
[2023-06-17] MEDS: humaLOG 100 UNITS/ML 3ML VIAL (SSI) SQ (11:00)
[2023-06-17 11:10] LABS: POC Glucose,Bedside 181 (70-110)
[2023-06-17 11:48] VITALS: BP 146/82; PULSE 82; RESP 18; TEMP 36.8; O2SAT 97
--- NOTE | 2023-06-18 14:14 | CARE MANAGER ---
Contacted patient related to hospital discharge. He states he picked up his medications and already saw Dr. Bishop this morning. Transferred him to cardiology to schedule an appointment. He states he feels better and denies any questions. GREGORY James
== END 2023-06-17 13:49 | disposition home or self-care (01) | DRG 322 ==
LOC: ER 15:46 → CATHLAB 16:21 → 2ND 17:24
PROVIDERS: Internal Medicine; Admitting Provider Internal Medicine; Emergency Provider Student in an Organized Health Care Education/Training Program; PCP Internal Medicine; Visit Provider Internal Medicine
PROC: 027136Z Dilation of Coronary Artery, Two Arteries with Three Drug-eluting Intraluminal Devices, Percutaneous Approach (ICD-10-PCS; principal; 2023-06-14 15:55)
DX: I21.4 Non-ST elevation (NSTEMI) myocardial infarction (principal); I50.20 Unspecified systolic (congestive) heart failure; I25.9 Chronic ischemic heart disease, unspecified; Z95.5 Presence of coronary angioplasty implant and graft; E78.5 Hyperlipidemia, unspecified; I10 Essential (primary) hypertension; Z79.84 Long term (current) use of oral hypoglycemic drugs; I25.119 Atherosclerotic heart disease of native coronary artery with unspecified angina pectoris; E11.9 Type 2 diabetes mellitus without complications
CPT/HCPCS: 36415; 71275; 80048; 80053; 82962; 83735; 84443; 84484; 85025; 85347; 92928; 93306; 93458; 99152; 99153; 99285; C1725; C1760; C1769; C1874; C1876; C9600; J1644; Q9967

== ENCOUNTER → 2023-06-18 11:14 | Outpatient (CLI) | payer MEDICARE, MEDICAID, SELFPAY ==
--- NOTE | 2023-06-18 11:22 | ECG_ITS ---
APPROVED REPORT Exam: Resting ECG HR:107 bpm ECG Measurements Heart Rate 107 AXES IN 200 P 61 QRSd 88 QRS 70 QT 330 T 35 QTc 392 Conclusion SINUS TACHYCARDIA LOW QRS VOLTAGE IN PRECORDIAL LEADS [QRS DEFLECTION < 1.0 mV IN CHEST LEADS] ABNORMAL RHYTHM ECG Electronically signed by : Isaac Bisohp MD 06/24/2023 16:14:08
== END ==
LOC: RT 11:16
PROVIDERS: PCP Internal Medicine; Visit Provider Internal Medicine
DX: I25.2 Old myocardial infarction (principal); R00.0 Tachycardia, unspecified
CPT/HCPCS: 93005

== ENCOUNTER 2023-08-19 12:42 | Outpatient (CLI) | payer MEDICARE, MEDICAID, SELFPAY ==
[2023-08-19 16:10] LABS: Basophils % 0.6 % (0.1-2.0); Eosinophils # 0.1 K/mm3 (0.0-0.4); Eosinophils % 2.6 % (0.1-12.0); Hematocrit 48.1 % (42.0-52.0); Hemoglobin 15.7 g/dL (14.1-18.0); Lymphocytes # 1.4 K/mm3 (0.7-4.5); Lymphocytes % 25.8 % (10-50); Mean Corpuscular HGB Conc 32.6 g/dL (31.8-35.4); Mean Corpuscular Hemoglobin 29.6 pg (27.0-31.2); Mean Corpuscular Volume 90.7 fl (80-94); Mean Platelet Volume 8.4 fl (7.4-10.4); Monocytes # 0.4 K/mm3 (0.1-1.0); Neutrophils # 3.4 K/mm3 (1.8-7.8); Platelet Count 253 K/mm3 (142-424); Red Cell Distribution Width 13.8 % (11.5-17.5); White Blood Count 5.3 K/mm3 (4.8-10.8)
[2023-08-19 17:14] LABS: Alanine Aminotransferase 21 U/L (12-78); Albumin Level 4.3 g/dl (3.5-5.0); Albumin/Globulin Ratio 1.5 (1.1-1.8); Alkaline Phosphatase 103 U/L (38-126); Anion Gap 13.7 mEq/L (5-15); Aspartate Amino Transferase 22 U/L (17-59); Bilirubin,Total 1.1 mg/dl (0.2-1.3); Blood Urea Nitrogen 16 mg/dl (9-20); Carbon Dioxide 25 mmol/L (22.0-30.0); Chloride 107 mmol/L (98-107); Chol/HDL Ratio 3.7 (1-3.5); Cholesterol 99 mg/dl (140-200); Estimated Glomerular Filt Rate 83 ml/min (>60); GFR (African American) 100 ML/MIN (>60); Globulin 2.8 g/dL (1.3-3.2); Glucose 125 mg/dl (74-100); HDL Cholesterol 27 mg/dl (40-60); Potassium 4.7 mmoL/L (3.5-5.1); Sodium 141 mmol/L (136-145); Total Protein,Serum 7.1 g/dl (6.3-8.2); Triglycerides 65 mg/dl (30-150); VLDL Cholesterol 13 mg/dL (0-40)
[2023-08-19 17:24] LABS: Direct LDL Cholesterol 59.74 mg/dL (100-129)
[2023-08-19 17:43] LABS: Prostate Specific Ag Screen 1.8 ng/ml (0.0-4.0)
[2023-08-19 21:46] LABS: Hemoglobin A1C 7.3 % (4.0-6.0)
== END 2023-08-19 23:59 ==
LOC: LAB.DROPOF 12:43
PROVIDERS: PCP Internal Medicine; Visit Provider Internal Medicine
DX: E11.59 Type 2 diabetes mellitus with other circulatory complications (principal); I25.10 Atherosclerotic heart disease of native coronary artery without angina pectoris; E78.5 Hyperlipidemia, unspecified; E55.9 Vitamin D deficiency, unspecified; N40.1 Benign prostatic hyperplasia with lower urinary tract symptoms; R80.9 Proteinuria, unspecified; E11.22 Type 2 diabetes mellitus with diabetic chronic kidney disease; Z12.5 Encounter for screening for malignant neoplasm of prostate; Z79.84 Long term (current) use of oral hypoglycemic drugs
CPT/HCPCS: 80053; 80061; 83036; 85025; G0103

== ENCOUNTER 2023-11-19 16:41 | Outpatient (CLI) | payer MEDICARE, MEDICAID, SELFPAY ==
[2023-11-19 19:15] LABS: Hemoglobin A1C 7.5 % (4.0-6.0)
== END 2023-11-19 23:59 | disposition home or self-care (01) ==
LOC: LAB.DROPOF 16:43
PROVIDERS: PCP Internal Medicine; Visit Provider Internal Medicine
DX: E11.59 Type 2 diabetes mellitus with other circulatory complications (principal); E11.22 Type 2 diabetes mellitus with diabetic chronic kidney disease; Z79.84 Long term (current) use of oral hypoglycemic drugs
CPT/HCPCS: 83036

== ENCOUNTER 2024-02-19 10:00 | Outpatient (CLI) | payer MEDICARE, MEDICAID, SELFPAY ==
[2024-02-19 17:56] LABS: Hemoglobin A1C 7.5 % (4.0-6.0)
[2024-02-19 19:21] LABS: Alanine Aminotransferase 19 U/L (12-78); Albumin Level 4.1 g/dl (3.5-5.0); Albumin/Globulin Ratio 1.4 (1.1-1.8); Alkaline Phosphatase 88 U/L (38-126); Anion Gap 13.6 mEq/L (5-15); Aspartate Amino Transferase 22 U/L (17-59); Bilirubin,Total 1.2 mg/dl (0.2-1.3); Blood Urea Nitrogen 13 mg/dl (9-20); Carbon Dioxide 22 mmol/L (22.0-30.0); Chloride 108 mmol/L (98-107); Chol/HDL Ratio 2.9 (1-3.5); Cholesterol 89 mg/dl (140-200); Estimated Glomerular Filt Rate 111 ml/min (>60); GFR (African American) 134 ML/MIN (>60); Globulin 2.9 g/dL (1.3-3.2); Glucose 121 mg/dl (74-100); HDL Cholesterol 31 mg/dl (40-60); Potassium 4.6 mmoL/L (3.5-5.1); Sodium 139 mmol/L (136-145); Triglycerides 78 mg/dl (30-150); VLDL Cholesterol 16 mg/dL (0-40)
[2024-02-19 19:32] LABS: Direct LDL Cholesterol 43.42 mg/dL (100-129)
[2024-02-20 18:57] LABS: Creatinine,Urine Random 97 mg/dL (Not Estab.)
== END 2024-02-19 23:59 | disposition home or self-care (01) ==
LOC: LAB.DROPOF 02-20 09:52
PROVIDERS: PCP Internal Medicine; Visit Provider Internal Medicine
DX: E78.5 Hyperlipidemia, unspecified (principal); E11.59 Type 2 diabetes mellitus with other circulatory complications; I10 Essential (primary) hypertension; I25.10 Atherosclerotic heart disease of native coronary artery without angina pectoris; Z95.5 Presence of coronary angioplasty implant and graft
CPT/HCPCS: 80053; 80061; 82043; 82570; 83036

== ENCOUNTER 2024-08-25 09:55 | Outpatient (CLI) | payer MEDICARE, MEDICAID, SELFPAY ==
[2024-08-25 13:38] LABS: Basophils % 0.6 % (0.1-2.0); Eosinophils # 0.2 K/mm3 (0.0-0.4); Hematocrit 48.4 % (42.0-52.0); Hemoglobin 15.6 g/dL (14.1-18.0); Lymphocytes # 1.1 K/mm3 (0.7-4.5); Lymphocytes % 16.3 % (10-50); Mean Corpuscular HGB Conc 32.2 g/dL (31.8-35.4); Mean Corpuscular Hemoglobin 27.1 pg (27.0-31.2); Mean Platelet Volume 9.9 fl (7.4-10.4); Monocytes # 0.7 K/mm3 (0.1-1.0); Monocytes % 9.8 % (1.7-9.3); Neutrophils # 4.7 K/mm3 (1.8-7.8); Platelet Count 324 K/mm3 (142-424); Red Blood Count 5.76 M/mm3 (4.60-6.20); Red Cell Distribution Width 13.9 % (11.5-17.5); White Blood Count 6.6 K/mm3 (4.8-10.8)
[2024-08-25 14:32] LABS: Albumin Level 4.5 g/dl (3.5-5.0); Chloride 106 mmol/L (98-107); Potassium 4.9 mmoL/L (3.5-5.1); Sodium 139 mmol/L (136-145)
[2024-08-25 14:35] LABS: Alanine Aminotransferase 20 U/L (12-78); Albumin/Globulin Ratio 1.6 (1.1-1.8); Alkaline Phosphatase 118 U/L (38-126); Anion Gap 14.9 mEq/L (5-15); Aspartate Amino Transferase 22 U/L (17-59); Blood Urea Nitrogen 19 mg/dl (9-20); Carbon Dioxide 23 mmol/L (22.0-30.0); Cholesterol 88 mg/dl (140-200); Estimated Glomerular Filt Rate 95 ml/min (>60); GFR (African American) 115 ML/MIN (>60); Globulin 2.8 g/dL (1.3-3.2); Total Protein,Serum 7.3 g/dl (6.3-8.2); Triglycerides 97 mg/dl (30-150); VLDL Cholesterol 19 mg/dL (0-40)
[2024-08-25 14:36] LABS: Calcium 8.9 mg/dl (8.4-10.2); Chol/HDL Ratio 3.4 (1-3.5); Glucose 138 mg/dl (74-100); HDL Cholesterol 26 mg/dl (40-60)
[2024-08-25 16:18] LABS: Prostate Specific Ag Screen 2.5 ng/ml (0.0-4.0)
[2024-08-25 17:58] LABS: Hemoglobin A1C 7.3 % (4.0-6.0)
== END 2024-08-25 23:59 | disposition home or self-care (01) ==
LOC: LAB.DROPOF 08-26 13:27
PROVIDERS: PCP Internal Medicine; Visit Provider Internal Medicine
DX: Z12.5 Encounter for screening for malignant neoplasm of prostate (principal); I10 Essential (primary) hypertension; E11.59 Type 2 diabetes mellitus with other circulatory complications; E78.5 Hyperlipidemia, unspecified; Z79.84 Long term (current) use of oral hypoglycemic drugs
CPT/HCPCS: 80053; 80061; 83036; 85025; G0103

== ENCOUNTER 2025-02-24 10:30 | Outpatient (CLI) | payer MEDICARE, MEDICAID, SELFPAY ==
[2025-02-24 20:13] LABS: Alanine Aminotransferase 15 U/L (12-78); Albumin Level 4.6 g/dl (3.5-5.0); Albumin/Globulin Ratio 1.4 (1.1-1.8); Alkaline Phosphatase 112 U/L (38-126); Anion Gap 20.1 mEq/L (5-15); Aspartate Amino Transferase 19 U/L (17-59); Bilirubin,Total 1.1 mg/dl (0.2-1.3); Blood Urea Nitrogen 16 mg/dl (9-20); Calcium 9.3 mg/dl (8.4-10.2); Carbon Dioxide 20 mmol/L (22.0-30.0); Chloride 105 mmol/L (98-107); Cholesterol 94 mg/dl (140-200); Creatinine,Serum 0.80 mg/dl (0.66-1.25); Estimated Glomerular Filt Rate 95 ml/min (>60); GFR (African American) 115 ML/MIN (>60); Globulin 3.3 g/dL (1.3-3.2); Glucose 107 mg/dl (74-100); HDL Cholesterol 26 mg/dl (40-60); Potassium 5.1 mmoL/L (3.5-5.1); Sodium 140 mmol/L (136-145); Total Protein,Serum 7.9 g/dl (6.3-8.2); Triglycerides 99 mg/dl (30-150)
[2025-02-24 21:20] LABS: Hemoglobin A1C 7.3 % (4.0-6.0)
--- OUTSIDE RECORDS SUMMARY | 2025-02-25 10:40 | XMS_ITS | Clinical Summary ---
Author Organization Healthcare Address [address] [place] [address] Care Team Providers Care Fine Grader Name Role Phone Unavailable Primary Care Provider Unavailabl e Social History Tobacco Use Types Packs/Day Years Used Date Smoking Tobacco: Never Assessed Sex and Gender Information Value Date Recorded Sex Assigned at Not on file Legal Sex Male 5:59 PM EDT Gender Identity Not on file Sexual Orientation Not on file Plan of Treatment Health Maintenance Due Date Last Done Comments [facility]-Depression Screening 1950 [facility]-/Child/Adol SDOH Screenings 1950 [facility]- SDOH Screenings 1969 [facility]-Adult SDOH Screenings 1969 [facility]-DTaP,Tdap,and Td Vaccine s (1 - Tdap) 1970 CT Colonography 1996 Colonoscopy 1996 FIT-DNA 1996 FIT 1996 FOBT 1996 Sigmoidoscopy 1996 [facility]-Colorectal Cancer Screening 1996 [facility]-Pneumococcal Vaccine: 50 + Years (1 of 1 - PCV) 2001 [facility]-Zoster Vaccines (1 of 2) 2001 [id number] Vaccine (1 - 20 24-25 season) 2024 [facility]-Influenza Vaccine (#1) 2025 [facility]-RSV Vaccine: 60+ Years o r (1 - 1-dose 75+ series) 2026 HPV Vaccines Aged Out No longer eligi ble based on patient's age to complete this topic [facility]-HIB Vaccines Aged Out No longer e ligible based on patient's age to complete this topic [facility]-Hepatitis A Vaccines Aged Out No longer eligible based on patient's age to complete this topic [facility]-IPV Vaccines Aged Out No longer e ligible based on patient's age to complete this topic [facility]-Rotavirus Vaccines Aged Out No lo nger eligible based on patient's age to complete this topic
== END 2025-02-24 23:59 ==
LOC: LAB.DROPOF 02-25 10:38
PROVIDERS: PCP Internal Medicine; Visit Provider Internal Medicine
DX: E78.5 Hyperlipidemia, unspecified (principal); E11.59 Type 2 diabetes mellitus with other circulatory complications; I10 Essential (primary) hypertension
CPT/HCPCS: 80053; 80061; 82043; 82570; 83036